=== PATIENT | female | born 1980 | race African-American/Black ===

== ENCOUNTER 2019-09-23 08:23 | Emergency (ER) | payer MEDICAID, SELFPAY ==
[2019-09-23 08:27] VITALS: BP 140/91; PULSE 105; RESP 17; TEMP 37.4; O2SAT 100; BMI 18.9
--- NOTE | 2019-09-23 08:46 | RAD_ITS ---
STUDY: X-RAY CHEST REASON FOR EXAM: Female, 38 years old. COUGH, CP, SOB , JOINT PAIN X 3 DAYS. HX SICKLE CELL TECHNIQUE: PA and lateral views of the chest. COMPARISON: None. FINDINGS: Right chest wall Mediport The lungs are clear and expanded. There is no demonstrated pleural abnormality. Normal size heart. Normal mediastinum and emigdio. Normal visualized pulmonary arteries. Normal visualized aortic arch and descending thoracic aorta. Normal visualized thoracic spine. Normal visualized ribs, clavicles, and shoulders. There is no demonstrated abnormality of the visualized soft tissue structures of the upper abdomen. RAD/Chest PA and Lateral IMPRESSION: Normal x-ray examination of the chest. Electronically Signed: Orlando Chambers DO at 11:51 EST Tel , Service support ,
--- NOTE | 2019-09-23 08:47 | EKG12_ITS ---
Test Reason : CP Blood Pressure : / mmHG Vent. Rate : 095 BPM Atrial Rate : 095 BPM P-R Int : 130 ms QRS Dur : 078 ms QT Int : 338 ms P-R-T Axes : 061 014 050 degrees QTc Int : 424 ms Normal sinus rhythm Normal ECG Confirmed by NAVIN NAVARRO, KIMBERLY ([id number]), metropolitan editor EASTON HYATT ([id number]) on 09/26/2019 8:25:45 AM Referred By: Esequiel López Confirmed By:KIMBERLY HOLDEN MD
--- NOTE | 2019-09-23 08:52 | ED.VIS.FLU ---
History of Present Illness Chief Complaint: Cough Informant: Patient Known exposure: No Onset: Days - 2-3 Context: Gradual Onset Timing: Continuous Quality: - - hard to breathe. 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 When asked if she has sickle cell trait versus disease, she states she does not just have treated his disease. She is usually seen in [facility] and she is here helping care for a friend when she developed these issues. She states she has pain everywhere. Her extremities including muscles and joints, abdomen, chest, throughout her back. She states she has fibromyalgia and sickle cell disease and type 1 diabetes. She states she has been very nauseated, has not been eating, she has been taking her long-acting insulin but avoiding the short acting. Her blood sugars have been running very high, sometimes her meter reads high and sometimes it is in the 500s. She denies any diarrhea. - Past Medical History (1) Sickle cell anemia Status: Chronic (2) Type 1 diabetes mellitus Status: Chronic (3) Fibromyalgia Status: Chronic (4) Rheumatoid arthritis Status: Chronic (5) Lupus Status: Chronic Past Medical History - Allergies and Home Meds Allergies/Adverse Reactions: Allergies ketorolac [From Toradol] Allergy (Verified 09/23/19 08:25) Hives metoclopramide [From Reglan] Allergy (Verified 09/23/19 08:25) Hives morphine Allergy (Verified 09/23/19 08:25) Hives prochlorperazine [From Compazine] Allergy (Verified 09/23/19 08:25) Hives Primary Care Physician: [facility] Doctor,Out of [NON-STAFF] - 1 Week if not improving Smoking Status: Unknown if ever smoked Drugs: None Review of Systems General: Reports: Chills, Fever, Malaise, Subjective. Denies: Sweats Cardiovascular: Reports: Chest pain. Denies: Palpitations Respiratory: Reports: Dyspnea, Cough. Denies: Orthopnea Gastrointestinal: Reports: Abdominal pain, Nausea, Vomiting. Denies: Diarrhea, Melena, Hematochezia Genitourinary: Denies: Dysuria, Hematuria, Frequency Musculoskeletal: Reports: Neck pain, Back pain, Extremity Pain. Denies: Swelling Skin: Denies: Rash, Wounds Neurological: Reports: Headache. Denies: Weakness, Numbness Physical Exam Vital Signs/Narrative: Vital Signs Temp Pulse Resp BP Pulse Ox 09/23/19 08:27 99.3 F H 105 H 17 140/91 H 100 Inital Vital Signs reviewed: Yes General: Well nourished, Well developed, - - Well-appearing, no acute distress. Head: Normocephalic, Atraumatic Eyes: Perrl, EOMI ENT: Moist mucous membranes, No rhinorrhea, TM's clear. Negative for: Sinus tenderness Neck: Supple, Nontender, No lymphadenopathy Cardiovascular: Regular rate, Regular rhythm, No murmurs Respiratory: No distress, CTA bilaterally, No Stridor, Chest nontender, - - Refuses to breathe deep during exam. Shallow breaths. Abdomen: Soft, Nondistended, Normal bowel sounds, Tender - Mild, diffuse. Negative for: Guarding, Rebound tenderness Back: Nontender, Normal Inspection Extremities: No edema, Tenderness - Diffuse, nonlocalized, normal inspection throughout Skin: Normal color, No rash, No Trauma Neurological: Alert, Oriented x3, Cranial nerves II-XII grossly intact, Normal Strength, Normal Sensation Psychological: Normal affect, Normal Mood Diagnostic/Tx/Re-eval Impressions Chest X-Ray 09/23/19 08:46 IMPRESSION: Normal x-ray examination of the chest. Electronically Signed: Orlando Chambers DO at 11:51 EST Tel , Service support , 09/23/19 08:46 Chest PA and Lateral [RAD] Stat 09/23/19 08:55 Mucosa - Nasopharyngeal Influenza Types A,B Direct FA (RAY) - Final Laboratory Results 09/23/19 09/23/19 09/23/19 10:07 10:07 10:07 WBC 14.2 H RBC 4.68 Hgb 11.4 L Hct 36.2 L MCV 77.4 L MCH 24.4 L MCHC 31.5 L RDW Std Deviation 36.2 RDW Coeff of Shireen 13.0 Plt Count 280 MPV 11.2 Immature Gran % (Auto) 0.400 Neut % (Auto) 76.8 H Lymph % (Auto) 17.8 L [place] % (Auto) 4.2 Eos % (Auto) 0.3 Baso % (Auto) 0.5 Absolute Neuts (auto) 10.9 H Absolute Lymphs (auto) 2.54 Nucleated RBC % 0 Retic Count 0.95 Immature Retic Fraction 6.90 Retic Hgb Equivalent 28.3 L Sodium 135 L Potassium 4.0 Chloride 107 Carbon Dioxide 20.0 L Anion Gap 8 BUN 17 Creatinine 0.92 Estim Creat Clear Calc 67.01 Est GFR (MDRD) Af Amer 87 Est GFR (MDRD) Non-Af 72 BUN/Creatinine Ratio 18.4 Glucose 407 H Calcium 9.0 Troponin I < 0.015 Urine Color Urine Clarity Urine pH Ur Specific Malone Urine Protein Urine Glucose (UA) Urine Ketones Urine Occult Blood Urine Nitrite Urine Bilirubin Urine Urobilinogen Ur Leukocyte Esterase Urine RBC Urine WBC Ur Squamous Epith Cells Urine Bacteria Urine Mucus Urine Yeast Acetone Level NEGATIVE 09/23/19 11:35 WBC RBC Hgb Hct MCV MCH MCHC RDW Std Deviation RDW Coeff of Shireen Plt Count MPV Immature Gran % (Auto) Neut % (Auto) Lymph % (Auto) [place] % (Auto) Eos % (Auto) Baso % (Auto) Absolute Neuts (auto) Absolute Lymphs (auto) Nucleated RBC % Retic Count Immature Retic Fraction Retic Hgb Equivalent Sodium Potassium Chloride Carbon Dioxide Anion Gap BUN Creatinine Estim Creat Clear Calc Est GFR (MDRD) Af Amer Est GFR (MDRD) Non-Af BUN/Creatinine Ratio Glucose Calcium Troponin I Urine Color Yellow Urine Clarity Clear Urine pH 6.5 Ur Specific Malone 1.015 Urine Protein 15 H Urine Glucose (UA) 1000 H Urine Ketones Negative Urine Occult Blood Negative Urine Nitrite Negative Urine Bilirubin Negative Urine Urobilinogen Normal Ur Leukocyte Esterase Negative Urine RBC 0 SEEN Urine WBC 0-5 SEEN Ur Squamous Epith Cells 0-5 SEEN Urine Bacteria 1+ Urine Mucus 0 SEEN Urine Yeast 1+ Acetone Level - Rhythm Strip Rhythm Strip: Sinus Rhythm Rate: 95 Ectopy: None - EKG Initial EKG Interpretation: Sinus Rhythm, No Acute Injury Pattern - normal ekg Prior: No Prior Re-Evaluation and Other Treatments: Patient sounds like she has a flulike syndrome. I offered her analgesics initially, thinking Toradol would be perfect for her symptoms, but she states she is allergic and gets chest tightness, hives, and more trouble breathing and she cannot have it. She states she is that way with morphine as well, and whenever she gets treated for pain she gets Dilaudid and she can take that just fine. I refuse to give her Dilaudid if she has that reaction with morphine. I did give her a dose of fentanyl for her symptoms. - Medical Decision Making Patient's work-up is all unremarkable. Notably, her reticulocyte count is within normal limits and not elevated. There were no sickle cells seen on her automated smear. Additionally, we looked up information from a different hospital, a [facility], she had tested negative for sickled cells there as well, her peripheral smear showed hypochromic small red blood cells, advise checking iron level. I suspect she has sickle cell trait and not sickle cell anemia. 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 I discussed all this with her. This would make more sense, as she likely is having myalgias along with her viral illness, given that her influenza test is negative and her chest x-ray is normal. This indicates she does not have pneumonia and does not have acute chest syndrome. Patient is adamant that she can safely have Dilaudid. I advised her that I am not giving her Dilaudid. I gave her 1 dose of fentanyl and she is asking for more narcotics for pain, which I am not giving her. She was offered Tylenol. She states she cannot take NSAIDs. I do not think she has any diagnosis here that requires narcotic pain medication. I think she has a viral syndrome, she is not hypoxic, she is clinically stable, and the rest of her tests are unremarkable and I think she is stable for discharge. No antibiotics indicated at this time. She was given several rounds of antiemetics because she said she was still nauseated but she was not actively vomiting. Initially she was given Zofran, Benadryl, Phenergan all at the same time because she said that she needed that, that is what she usually does for nausea. She was then given more Zofran later and said that she needed more Benadryl with that so she was given a smaller dose. She was also given insulin to help her sugar come down. Testing indicates she is not in DKA. Her EKG is normal I do not think she is having cardiac chest pain. It likely is soreness from all of the coughing. Same with her abdomen. I do not think she needs emergent imaging there. ED Disposition - Plan for ED Patient: Disposition: Home or Assisted Living Diagnosis: Viral syndrome, Diffuse pain, Hyperglycemia due to type 1 diabetes mellitus Instructions: BRONCHITIS, No Antibiotic (Adult), ED Diabetic Hyperglycemia Referrals: [facility] Doctor,Out of [NON-STAFF] - 1 Week if not improving
[2019-09-23 09:00] VITALS: PULSE 96; RESP 20
[2019-09-23] MEDS: Albuterol 2.5 MG/3 ML VIAL.NEB. INHALATION (09:09)
[2019-09-23] MEDS: 0.9% Normal Saline 1,000 ML 999 ML IV (09:31)
[2019-09-23] MEDS: Ondansetron 4 MG/2 ML Vial IV ×2 (09:31→12:01)
[2019-09-23] MEDS: fentaNYL 100 MCG/2 ML Ampul 50 MCG IV (09:31)
[2019-09-23] MEDS: proMETHazine 25 MG/ML Syringe 12.5 MG IV (09:31)
[2019-09-23] MEDS: DiphenhydrAMINE 50 MG/ML Syringe 25 MG IV (09:31)
[2019-09-23 10:19] LABS: Absolute Lymphocyte Count 2.54 X10^3/uL (0.83-4.51); Absolute Neutrophil Count 10.9 X10^3/uL (2.0-7.7); Basophil# 0.07 X10^3/uL; Basophil% 0.5 % (0-1); Eosinophil# 0.04 X10^3/uL; Eosinophils% 0.3 % (0-5); Hematocrit 36.2 % (37-47); Hemoglobin 11.4 g/dL (12.0-15.0); Lymphocyte # 2.54 X10^3/ul (4.0); Lymphocyte % 17.8 % (19-41); Mean Corp Hgb Conc 31.5 g/dL (32-36); Mean Corpuscular Hgb 24.4 pg (27.0-32.0); Mean Corpuscular Volume 77.4 fL (81-99); Mean Platelet Vol. 11.2 fl (6.2-12.0); Monocyte% 4.2 % (0-10); NRBC Flagged by Analyzer 0 % (0-5); Neutrophil # 10.94 X10^3/uL (2.7-7.7); Neutrophil % 76.8 % (47-70); Platelet Count 280 K/mm3 (150-450); RBC Distribution Width SD 36.2 fl (35.1-43.9); RET-HE 28.3 pg (30-35); Red Blood Count 4.68 M/mm3 (4.2-5.4); Reticulocyte Count 0.95 % (0.5-1.5); White Blood Count 14.2 K/mm3 (4.4-11.0)
[2019-09-23 10:28] VITALS: PULSE 103; RESP 15; O2SAT 99
[2019-09-23 10:35] LABS: Anion Gap 8 (5-15); BUN 17 mg/dL (7-18); BUN/Creat Ratio 18.4 RATIO (10-20); Chloride 107 mmol/L (98-107); Creatinine, Serum 0.92 mg/dL (0.55-1.02); EST Glomerular Filtration Rate 72 mL/min (>60); Est Glom Filt Rate - Afr Amer 87 mL/min (>60); Estimated Creatinine Clearance 67.01 ml/min; Glucose 407 mg/dL (74-106); Sodium Level 135 mmol/L (136-145)
[2019-09-23 11:42] LABS: Mucous, Urine 0 SEEN /hpf (<or=2+); Red Blood Cells-Urine 0 SEEN /hpf (0-5)
[2019-09-23 11:50] LABS: Color, Urine Yellow (Yellow); Glucose, Dipstick 1000 mg/dl (Normal); Ketone-Dipstick Negative (Negative); Leukocyte Esterase-Dipstick Negative /ul (Negative); Nitrite-Dipstick Negative (Negative); Occult Blood-Urine Negative /ul (Negative); Protein-Dipstick 15 mg/dl (Negative); Specific Gravity, Urine 1.015 (1.002-1.030); Urine Bilirubin Dipstick Negative (Negative); Urine Clarity Clear (Clear); Urine Urobilinogen Normal (Normal); Urine pH 6.5 (5.0 - 8.0)
[2019-09-23] MEDS: Insulin Lispro 100 UNIT/ML INSULN.PEN 8 UNIT SC (11:50)
[2019-09-23] MEDS: DiphenhydrAMINE 50 MG/ML Syringe 12.5 MG IV (12:00)
[2019-09-23 12:03] VITALS: RESP 18; O2SAT 99
[2019-09-23 12:03] LABS: Bacteria 1+ /hpf (None Seen); Squamous Epithelial Cells - UA 0-5 SEEN /hpf (5-10); White Blood Cells 0-5 SEEN /hpf (0-5); Yeast-Urine 1+ /hpf (None Seen)
[2019-09-23 13:25] VITALS: RESP 16
== END 2019-09-23 13:32 | disposition home or self-care (01) ==
PROVIDERS: Emergency Provider Emergency Medicine; PCP Physical Medicine & Rehabilitation; Referring Provider Physical Medicine & Rehabilitation
DX: B34.9 Viral infection, unspecified (principal); E10.65 Type 1 diabetes mellitus with hyperglycemia; M79.7 Fibromyalgia; M06.9 Rheumatoid arthritis, unspecified; Z79.4 Long term (current) use of insulin
CPT/HCPCS: 36415; 71046; 80048; 81001; 82009; 84484; 85025; 85045; 87804; 93005; 94640; 96361; 96374; 96375; 96376; 99285; J7030; A4216; J2405

== ENCOUNTER 2019-10-11 18:17 | Emergency (ER) | payer MEDICAID, SELFPAY ==
[2019-10-11 18:19] VITALS: BP 137/78; PULSE 111; RESP 18; TEMP 36.3; O2SAT 99; BMI 18.7
--- NOTE | 2019-10-11 18:38 | EKG12_ITS ---
Test Reason : CP Blood Pressure : / mmHG Vent. Rate : 107 BPM Atrial Rate : 107 BPM P-R Int : 128 ms QRS Dur : 076 ms QT Int : 334 ms P-R-T Axes : 058 024 054 degrees QTc Int : 445 ms Sinus tachycardia Otherwise normal ECG Confirmed by DONNA NAVARRO, ALICIA ([id number]), greeting card editor EASTON HYATT ([id number]) on 10/16/2019 2:33:14 PM Referred By: [facility] Confirmed By:LEO THOMPSON MD
--- NOTE | 2019-10-11 18:38 | RAD_ITS ---
STUDY: X-RAY CHEST REASON FOR EXAM: Female, 39 years old. SICKLE CELL CRISIS, JOINT PAIN, CHEST PAIN, N/V TECHNIQUE: AP COMPARISON: 09/23/2019 FINDINGS: Right chest port is stable. The lungs are clear and expanded. There is no demonstrated pleural abnormality. Normal size heart. Normal mediastinum and emigdio. Normal visualized pulmonary arteries. Normal visualized aortic arch and descending thoracic aorta. Normal visualized thoracic spine. Normal visualized ribs, clavicles, and shoulders. There is no demonstrated abnormality of the visualized soft tissue structures of the upper abdomen. RAD/Chest 1 View (Portable) IMPRESSION: Stable, nonacute portable x-ray examination of the chest. Electronically Signed: Jama Renner MD (Brooks) at 19:31 EST , Service support ,
[2019-10-11 19:24] VITALS: BP 106/70; PULSE 109; RESP 19; O2SAT 99
[2019-10-11 19:24] LABS: Absolute Lymphocyte Count 2.38 X10^3/uL (0.83-4.51); Basophil# 0.06 X10^3/uL; Basophil% 0.6 % (0-1); Eosinophil# 0.04 X10^3/uL; Eosinophils% 0.4 % (0-5); Hematocrit 35.9 % (37-47); Hemoglobin 11.2 g/dL (12.0-15.0); Lymphocyte # 2.38 X10^3/ul (4.0); Lymphocyte % 25.6 % (19-41); Mean Corp Hgb Conc 31.2 g/dL (32-36); Mean Corpuscular Volume 76.9 fL (81-99); Mean Platelet Vol. 11.7 fl (6.2-12.0); Monocyte# 0.83 X10^3/uL; Monocyte% 8.9 % (0-10); NRBC Flagged by Analyzer 0 % (0-5); Neutrophil # 5.97 X10^3/uL (2.7-7.7); Neutrophil % 64.2 % (47-70); Platelet Count 278 K/mm3 (150-450); RBC Distribution Width CV 12.7 % (11.6-14.6); RBC Distribution Width SD 35.2 fl (35.1-43.9); Red Blood Count 4.67 M/mm3 (4.2-5.4); White Blood Count 9.3 K/mm3 (4.4-11.0)
[2019-10-11 19:51] LABS: Anion Gap 10 (5-15); BUN 16 mg/dL (7-18); BUN/Creat Ratio 14.3 RATIO (10-20); Chloride 98 mmol/L (98-107); Creatinine, Serum 1.12 mg/dL (0.55-1.02); EST Glomerular Filtration Rate 57 mL/min (>60); Est Glom Filt Rate - Afr Amer 69 mL/min (>60); Estimated Creatinine Clearance 53.76 ml/min; Glucose 452 mg/dL (74-106); Potassium 3.9 mmol/L (3.5-5.1); Sodium Level 132 mmol/L (136-145)
--- NOTE | 2019-10-11 19:58 | ED.DCSUM_ITS ---
- ER Visit Summary Date of Service: 10/11/19 Chief Complaint: Diffuse body pain I think I am having a sickle cell crisis History of Present Illness: The patient is a 39 F history of sickle cell anemia, insulin-dependent diabetes, lupus, rheumatoid arthritis and pancreatitis. Patient has a MediPort. States that for the last 3 days she has felt diffuse body aches and has been elevated blood sugar. Has had nausea and vomiting. No diarrhea. No fever. No melena. No dysuria. States is a diffuse aching chest pain also. No history of cardiac disease. No history of DVT or PE. Physical Examination: Middle-aged female no acute distress vital signs stable afebrile. Pulse ox 9 9% room air no signs hypoxia. HEENT exam unremarkable. Neck nontender no lymphadenopathy. Lungs clear to auscultation bilaterally. Heart regular rhythm rate about 110 no murmur. Abdomen soft nontender normal bowel sounds no peritoneal signs. Patient is moving all 4 extremities. 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 Dorsi plantarflexion intact. Calves are nontender without edema or cords. Neurologically she is awake and alert with no focal motor deficits. Back nontender. Skin unremarkable. Neurologic exam normal. Test Results: Essentially portable 1 view read by myself the radiologist showed no acute abnormality. Right-sided Medpor. EKG sinus tachycardia rate of 107 no acute signs of [place] or ischemia and unchanged from her prior about 3 weeks ago. CBC showed a chronic anemia hemoglobin 11 which is her baseline. Normal white count. Electrolytes unremarkable normal creatinine and gap. Blood sugar 452. Lipase 173. Opponent normal. Blood sugar of 452 serum ketones was obtained which was negative. Due to her history of sickle cell disease and a pain crisis a reticulocyte count was obtained that was normal at 0.87. Emergency Department Course and Treatment: Patient with possible sickle cell crisis. Treated with IV fluids, Toradol, Dilaudid and Zofran. She will undergo lab evaluation. Ultimately repeat exams unchanged. There is a concern this patient is displaying drug-seeking behavior not only did she want certain meds and asked for specific dosages but she also wanted injected in the IV site closest to her skin. She was also given subcu insulin 16 units for her hyperglycemia. She was given additional nausea medication. She asked for additional Dilaudid and after reviewing her labs I explained to her that we could not give her any further pain medication. Treatment Plan: Her primary care physician. Watch her blood sugars closely. Disposition: discharge Impression: Acute pain uncertain etiology Hyperglycemia with a history of diabetes History of sickle cell disease and lupus This note was generated with [employer]FX[employer] dictation software. It may contain incorrect words, spelling, and punctuation that were not noted in review of the chart prior to signing ED Disposition - Plan for ED Patient: Referrals: Esequiel López [Primary Care Provider] -
[2019-10-11] MEDS: Ondansetron 4 MG/2 ML Vial IV (20:15)
[2019-10-11] MEDS: proMETHazine 25 MG/ML Syringe 12.5 MG IV ×2 (20:17→22:10)
[2019-10-11 20:18] LABS: Lipase 173 U/L (73-393)
[2019-10-11] MEDS: DiphenhydrAMINE 50 MG/ML Syringe 25 MG IV ×2 (20:19→22:07)
[2019-10-11] MEDS: HYDROmorphone 1 MG/ML Syringe IV (20:22)
[2019-10-11] MEDS: 0.9% Normal Saline 1,000 ML 999 ML IV (20:22)
[2019-10-11 20:24] VITALS: BP 122/87; PULSE 121; RESP 16; O2SAT 99
[2019-10-11 20:27] LABS: Platelet Count 288 K/mm3 (150-450); RET-HE 28.8 pg (30-35); Reticulocyte Count 0.87 % (0.5-1.5)
[2019-10-11 21:09] VITALS: BP 174/114; PULSE 115; RESP 20; O2SAT 98
--- NOTE | 2019-10-11 21:17 | ED.RN ---
PT RESTING QUIETLY IN BED TEXTING ON PHONE, NO SIGNS OF DISTRESS. PT REQUESTS MORE DILAUDID, BENADRYL, ZOFRAN AND PHENERGAN. STATES WE ONLY GAVE HER HALF THE USUAL AMOUNT OF EACH DOSE SHE TAKES. AWARE.
[2019-10-11 22:00] VITALS: BP 127/89; PULSE 103; RESP 18; O2SAT 98
--- NOTE | 2019-10-11 22:03 | ED.DEP ---
ED Disposition - Plan for ED Patient: Disposition: Home or Assisted Living Instructions: CHEST PAIN, Uncertain Cause Referrals: Esequiel López [Primary Care Provider] - As soon as possible Additional Instructions: Your blood sugars closely. Take your blood sugar prior to going to bed the night. Follow-up with your doctor.
[2019-10-11] MEDS: Insulin Lispro 100 UNIT/ML INSULN.PEN 16 UNIT SC (22:12)
--- NOTE | 2019-10-11 22:23 | ED.RN ---
PT REQUESTS 25MG MORE OF BENADRYL WITH HER SECOND DOSE OF PHENERGAN DUE TO EXTREME NAUSEA. MD NOTIFIED AND MORE SECOND DOSE BENADRYL ORDERED TOO. PT REQUESTS ALL MEDS BE PUSHED AT LOWEST IV PORT CLOSEST TO PT. EDUCATED PT ON IMPORTANCE OF DILUTING MEDICATIONS AND ADMINISTERING AT FURTHEST PORT. PT THEN REQUESTS MEAL, STATES EVEN THOUGH SHE LIVES JUST DOWN THE STREET SHE WOULD PREFER TO EAT HERE, STATES LAST VISIT SHE RECEIVED MEAL AT DISCHARGE. PT GIVEN TERESA CRACKERS, PEANUT BUTTER, STRING CHEESE AND APPLE JUICE.
--- NOTE | 2019-10-11 22:29 | ED.RN ---
PORT FLUSHED WITH SALINE AND THEN HEPARIN, SITE INTACT, BANDAID PLACED.
== END 2019-10-11 22:30 | disposition home or self-care (01) ==
PROVIDERS: Emergency Provider Emergency Medicine; PCP Physical Medicine & Rehabilitation
DX: R07.9 Chest pain, unspecified (principal); E11.65 Type 2 diabetes mellitus with hyperglycemia; M32.9 Systemic lupus erythematosus, unspecified; Z79.4 Long term (current) use of insulin; Z79.82 Long term (current) use of aspirin; Z79.899 Other long term (current) drug therapy; D57.1 Sickle-cell disease without crisis
CPT/HCPCS: 36591; 71045; 80048; 82009; 83690; 84484; 85025; 85045; 93005; 96361; 96374; 96375; 96376; 99285; J7030; A4216; J2405

== ENCOUNTER 2019-11-09 19:02 | Emergency (ER) | payer MEDICAID, SELFPAY ==
[2019-11-09 19:03] VITALS: BP 134/85; PULSE 103; RESP 17; TEMP 37.4; O2SAT 99; BMI 18.7
--- NOTE | 2019-11-09 19:30 | EKG12_ITS ---
Test Reason : CP Blood Pressure : / mmHG Vent. Rate : 101 BPM Atrial Rate : 101 BPM P-R Int : 124 ms QRS Dur : 076 ms QT Int : 340 ms P-R-T Axes : 089 044 082 degrees QTc Int : 440 ms Sinus tachycardia Otherwise normal ECG Confirmed by CORNELIO BARCLAY ([id number]), video effects editor ALONZO JC ([id number]) on 11/13/2019 10:58:37 AM Referred By: Confirmed By:CORNELIO BARCLAY
--- NOTE | 2019-11-09 19:40 | RAD_ITS ---
STUDY: X-RAY CHEST REASON FOR EXAM: Female, 39 years old. CHEST PAIN SINCE THIS AM RADIATING TO BACK, HX SICKLE CELL TECHNIQUE: Frontal view COMPARISON: October 11, 2019 FINDINGS: Right venous port with tip at the proximal SVC level. The lungs are clear and expanded. There is no demonstrated pleural abnormality. Normal size heart. Normal mediastinum and emigdio. Normal visualized pulmonary arteries. Normal visualized aortic arch and descending thoracic aorta. Normal visualized thoracic spine. Normal visualized ribs, clavicles, and shoulders. There is no demonstrated abnormality of the visualized soft tissue structures of the upper abdomen. RAD/Chest 1 View (Portable) IMPRESSION: Normal x-ray examination of the chest. Electronically Signed: Doyle Gimenez DO at 19:52 EDT Tel [phone], Service support ,
[2019-11-09] MEDS: DiphenhydrAMINE 50 MG/ML Syringe 25 MG IV ×2 (19:49→21:07)
[2019-11-09] MEDS: Ondansetron 4 MG/2 ML Vial IV ×2 (19:49→21:07)
[2019-11-09] MEDS: proMETHazine 25 MG/ML Syringe 12.5 MG IV (19:49)
[2019-11-09] MEDS: HYDROmorphone 1 MG/ML Syringe IV (19:50)
[2019-11-09 19:57] VITALS: BP 137/88; PULSE 108; RESP 19; TEMP 36.4; O2SAT 98
[2019-11-09 20:20] VITALS: BP 126/83; PULSE 107; RESP 16; TEMP 36.8; O2SAT 98
[2019-11-09 20:21] LABS: Absolute Lymphocyte Count 2.66 X10^3/uL (0.83-4.51); Basophil# 0.06 X10^3/uL; Basophil% 0.6 % (0-1); Eosinophil# 0.05 X10^3/uL; Eosinophils% 0.5 % (0-5); Hematocrit 32.2 % (37-47); Lymphocyte # 2.66 X10^3/ul (4.0); Lymphocyte % 28.2 % (19-41); Mean Corp Hgb Conc 31.1 g/dL (32-36); Mean Corpuscular Hgb 23.6 pg (27.0-32.0); Mean Corpuscular Volume 75.9 fL (81-99); Mean Platelet Vol. 11.6 fl (6.2-12.0); Monocyte# 0.66 X10^3/uL; NRBC Flagged by Analyzer 0 % (0-5); Neutrophil # 5.97 X10^3/uL (2.7-7.7); Neutrophil % 63.4 % (47-70); Platelet Count 340 K/mm3 (150-450); RBC Distribution Width CV 13.4 % (11.6-14.6); RBC Distribution Width SD 36.5 fl (35.1-43.9); RET-HE 25.4 pg (30-35); Red Blood Count 4.24 M/mm3 (4.2-5.4); Reticulocyte Count 1.05 % (0.5-1.5); White Blood Count 9.4 K/mm3 (4.4-11.0)
[2019-11-09 20:33] LABS: ALB/GLOB Ratio 0.6 RATIO (0.9-2.4); AST(SGOT) 12 U/L (15-37); Alanine Aminotransfer ALT/SGPT 18 U/L (13-56); Albumin, Serum 2.6 g/dL (3.2-5.0); Alkaline Phosphatase 163 U/L (45-117); Anion Gap 8 (5-15); BUN 15 mg/dL (7-18); BUN/Creat Ratio 13.8 RATIO (10-20); Calcium,Total 8.7 mg/dL (8.5-10.1); Chloride 104 mmol/L (98-107); Creatinine, Serum 1.09 mg/dL (0.55-1.02); EST Glomerular Filtration Rate 59 mL/min (>60); Est Glom Filt Rate - Afr Amer 72 mL/min (>60); Estimated Creatinine Clearance 55.35 ml/min; Globulin 4.7 g/dL (2.2-4.2); Glucose 472 mg/dL (74-106); Lipase 154 U/L (73-393); Potassium 3.7 mmol/L (3.5-5.1); Protein, Total 7.3 g/dL (6.4-8.2); Sodium Level 134 mmol/L (136-145)
[2019-11-09] MEDS: Insulin Lispro 100 UNIT/ML INSULN.PEN 10 UNIT SC (21:08)
[2019-11-09] MEDS: proMETHazine 25 MG/ML Syringe 6.25 MG IV (21:08)
[2019-11-09] MEDS: 0.9% Normal Saline 1,000 ML 999 ML IV (21:08)
[2019-11-09] MEDS: HYDROmorphone 0.5 MG/0.5 ML SYRINGE IV (21:09)
[2019-11-09 21:24] VITALS: BP 137/93; PULSE 119; RESP 18; O2SAT 97
[2019-11-09 22:01] LABS: Bedside Glucose 306 mg/dL (70-110)
--- NOTE | 2019-11-09 22:11 | ED.DCSUM_ITS ---
- ER Visit Summary Date of Service: 11/09/19 Chief Complaint: Chest pain History of Present Illness: The patient is a 39 F with a history of sickle cell disease. She presents with chest pain and myalgias. She also has back pain. She has a history of lupus, rheumatoid arthritis, fibromyalgia, in addition to her sickle cell. Physical Examination: Afebrile and vital signs unremarkable except for heart rate of 103. She appears nontoxic and in no acute distress. Heart regular. Lungs clear. Abdomen soft. Skin appears normal. Test Results: EKG shows sinus rhythm at a rate of 101. Hemoglobin stable at 10.0. Glucose 472, creatinine 1.09. Reticulocytes 25.4, stable. Alkaline phosphatase 163, lipase normal. Troponin normal. Chest x-ray normal. Emergency Department Course and Treatment: Patient received pain meds, Benadryl, Zofran, Phenergan. She also received IV fluids and insulin for her glucose of 472. Repeat glucose was about 300. There is no indication for hospitalization, transfusion, or further cardiac work-up. She will receive the rest of her fluids and be discharged home. Follow-up with her primary doctor. Treatment Plan: As above Disposition: Discharge Impression: Sickle cell disease, chest pain, hyperglycemia This note was generated with [email or web address] dictation software. It may contain incorrect words, spelling, and punctuation that were not noted in review of the chart prior to signing ED Disposition - Plan for ED Patient: Referrals: Esequiel López [Primary Care Provider] -
[2019-11-09 22:14] VITALS: BP 132/85; PULSE 117; RESP 19; O2SAT 99
--- NOTE | 2019-11-09 22:14 | ED.DEP ---
ED Disposition - Plan for ED Patient: Instructions: Sickle Cell Anemia Referrals: Esequiel López [Primary Care Provider] -
[2019-11-09] MEDS: 0.9% Normal Saline 1,000 ML 1000 ML IV (22:23)
[2019-11-09 23:32] VITALS: BP 116/73; PULSE 100; RESP 16; O2SAT 98
== END 2019-11-09 23:34 | disposition home or self-care (01) ==
LOC: ED 19:24
PROVIDERS: Emergency Provider Emergency Medicine; PCP Physical Medicine & Rehabilitation
DX: D57.1 Sickle-cell disease without crisis (principal); R07.9 Chest pain, unspecified; R73.9 Hyperglycemia, unspecified
CPT/HCPCS: 36415; 71045; 80053; 82962; 83690; 84484; 85025; 85045; 93005; 96361; 96374; 96375; 96376; 99283; J7030; A4216; J2405

== ENCOUNTER 2019-11-18 11:45 | Emergency (ER) | payer MEDICAID, SELFPAY ==
[2019-11-18 11:46] VITALS: BP 113/75; PULSE 115; RESP 16; TEMP 37.6; O2SAT 100; BMI 19.4
--- NOTE | 2019-11-18 12:20 | EKG12_ITS ---
Test Reason : Blood Pressure : / mmHG Vent. Rate : 110 BPM Atrial Rate : 110 BPM P-R Int : 124 ms QRS Dur : 070 ms QT Int : 330 ms P-R-T Axes : 067 010 052 degrees QTc Int : 446 ms Sinus tachycardia Otherwise normal ECG Confirmed by NAVIN NAVARRO, KIMBERLY ([id number]), newspaper or periodical editor EASTON HYATT ([id number]) on 11/21/2019 9:19:50 AM Referred By: DAYRON Confirmed By:KIMBERLY HOLDEN MD
[2019-11-18 12:30] VITALS: RESP 16
--- NOTE | 2019-11-18 12:45 | ED.DCSUM_ITS ---
- ER Visit Summary Date of Service: 11/18/19 Chief Complaint: Chest pain, shortness of breath History of Present Illness: The patient is a 39 F who presents with chest pain and shortness of breath that is been getting worse over the past couple days. Patient states the pain in her chest is sharp and radiates into her back. Patient states she feels short of breath at times. Patient denies any cough. Patient denies any fevers or chills. Patient admits to some nausea and vomiting. Patient admits to some diffuse abdominal pain. Patient states she has a history of sickle cell disease and pancreatitis as well as diabetes, fibromyalgia, rheumatoid arthritis, and lupus. Physical Examination: Vital signs are stable except for mild tachycardia of 115. Patient is afebrile. Patient is in no acute distress. Oral mucosa is pink and moist. Neck is supple. Trachea is midline. There is no JVD. Heart was regular rate and rhythm. Lungs are clear and equal bilaterally. Abdomen is soft. Bowel sounds are normal. There is mild diffuse tenderness. There is no rebound or guarding noted. Cranial nerves II through XII are intact. There are no focal motor or sensory deficits noted. Extremities are intact. There is no calf tenderness or edema. Test Results: EKG showed sinus tachycardia with a rate of 110. There are no acute ST or T wave changes. CBC, comprehensive metabolic profile, lipase, troponin, and reticulocyte count were ordered. Portable chest x-ray was also ordered. Patient became upset and wanted to leave prior to having these labs and x-rays done. Emergency Department Course and Treatment: Patient was ordered IV fluids, Zofran, Benadryl, and oral oxycodone. Patient became upset here in the emergency department. Patient states she heard other people talking about her and this made her feel like she was wanted here in the emergency department. Patient states she just wants to leave. Patient does not want any further testing or treatment at this time. Patient will be discharged to follow-up with her primary care physician. Patient understood and was agreeable with the plan. All questions were answered. Disposition: Discharge Impression: Chest pain of uncertain etiology This note was generated with Goodpatchation software. It may contain incorrect words, spelling, and punctuation that were not noted in review of the chart prior to signing ED Disposition - Plan for ED Patient: Disposition: Home or Assisted Living Diagnosis: Chest pain of uncertain etiology, Sickle cell anemia Instructions: ED Sickle Cell Pain Crisis Referrals: Esequiel López [Primary Care Provider] - 3-5 Days
== END 2019-11-18 12:57 | disposition home or self-care (01) ==
LOC: ED 12:55
PROVIDERS: Emergency Provider Emergency Medicine; PCP Physical Medicine & Rehabilitation
DX: R07.9 Chest pain, unspecified (principal); E11.9 Type 2 diabetes mellitus without complications; M32.9 Systemic lupus erythematosus, unspecified; M06.9 Rheumatoid arthritis, unspecified; D57.1 Sickle-cell disease without crisis; Z79.82 Long term (current) use of aspirin; Z79.4 Long term (current) use of insulin
CPT/HCPCS: 93005; 99283; J2405

== ENCOUNTER 2019-12-05 00:26 | Emergency (ER) | payer MEDICAID, SELFPAY ==
[2019-12-05 00:27] VITALS: PULSE 117
[2019-12-05 00:28] VITALS: BP 143/89; PULSE 123; RESP 16; TEMP 37; O2SAT 98; BMI 20.5
--- NOTE | 2019-12-05 00:47 | CT_ITS ---
STUDY: CT ABDOMEN AND PELVIS WITHOUT CONTRAST REASON FOR EXAM: Female, 39 years old. R SIDE ABD PAIN, N/V/D, MALAISE X 4 DAYS RADIATION DOSAGE (If Supplied By Facility): CTDIvol = ( 7.54 ) mGy, DLP = ( 268.08 ) mGycm TECHNIQUE: Transaxial images were obtained from the dome of the diaphragm to the symphysis pubis without oral contrast, and without intravenous contrast. Sagittal and coronal images were reconstructed. Individualized dose optimization techniques were used for this CT. COMPARISON: None. FINDINGS: Right lower lobe atelectasis. Remainder of the lung bases are clear. No pleural effusion. The visualized portions of the heart are within normal limits. Normal liver. The gallbladder is contracted. Within the upper aspect of the spleen there is a round low-attenuation structure measuring 4.5 x 4.5 cm in axial dimension by 3.3 cm in craniocaudal dimension. Normal pancreas. Normal bilateral adrenal glands. Normal right kidney. Normal left kidney. Normal visualized stomach. Normal small intestine. Increased fecal debris within the colon suggestive of constipation. Diverticulosis with no signs of diverticulitis. The appendix is visualized and appears normal. Normal abdominal aorta. Normal inferior vena cava. Normal retroperitoneum. Normal urinary bladder. Anteverted uterus. Right-sided adnexal cyst measuring 2.6 x 2.0 cm. No free fluid in the pelvis. Heterogeneous appearance of the uterus at the level of the fundus which may indicate uterine fibroids. Normal abdominal wall. Normal osseous structures. CT/Abdomen/Pelvis W IV Cont ONLY IMPRESSION: Low-attenuation structure within the spleen described above, follow-up with ultrasound is recommended to evaluate if this represents a cyst versus solid lesion. Contracted gallbladder, remainder of abdominal viscera are unremarkable. No acute appendicitis. Constipation. No focal inflammatory process throughout the gastrointestinal tract. Right-sided adnexal cyst as described. No free fluid in the pelvis. Heterogeneous uterus suggestive of uterine fibroids at the level of the fundus. If indicated, these findings can be further assessed with ultrasound of the pelvis. Electronically Signed: Alfreda Walsh MD at 2:21 EDT , Service support ,
--- NOTE | 2019-12-05 00:49 | ED.DCSUM_ITS ---
History of Present Illness Chief Complaint: General Illness Detail of Chief Complaint: n/v/d, abd pain, chest pain Informant: Patient - Abdominal Pain/Flank Pain Onset: Days - 4 Context: Gradual Onset Timing: Continuous Quality: Aching Location: RUQ, RLQ Current Severity: Severe Maximum Severity: Severe Worsened by: - - vomiting Relieved by: Nothing - Nausea/Vomiting/Emesis GI Symptom: Nausea, Vomiting Onset: Days - 4 Quality: Negative for: Blood streaks, Coffee ground, Hematemesis - Diarrhea/Melena/Hematochezia GI Symptom: Diarrhea. Negative for: Melena, Hematochezia Onset: Days - 4 Stool Quality: Watery. Negative for: Black, Maroon, ISIDRO per rectum Severity: Moderate Episodes: 4 - per day, approx Associated Symptoms: - - decreased UOP. Negative for: Dysuria, Frequency, Hematuria, Urgency Narrative: Patient presenting with 4 days of vomiting diarrhea abdominal pain all on the right side, today she started having chest discomfort that feels sharp, dull, like pressure all at the same time with radiation into her mid upper back. She has had this and presented here with this before. Usually she describes the abdominal pain is diffuse. She has never had any abdominal surgeries. She claims low-grade fevers 99-100. Denies any dyspnea but she has had a minor nonproductive cough. She feels dehydrated. She states her blood sugars have been reading high and she is a type I diabetic and has been taking her long- acting insulin. She denies any syncope or palpitations, arm discomfort, rashes, or other upper respiratory symptoms. She states she has a history of sickle cell anemia, but as I have documented before after seeing this patient, she has never had a peripheral smear that I have seen in this healthcare system EMR or [facility]'s that shows any sickled cells, she has been here 3 prior times for sickle cell pain and has had normal retic counts (not elevated) all 3 times, and has had low or normal bilirubin levels. Furthermore, she has told me that she has alpha thalassemia or sickle cell trait, she really was not sure. 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 - Past Medical History (1) Anemia Status: Chronic (2) Fibromyalgia Status: Chronic (3) Lupus Status: Chronic (4) Rheumatoid arthritis Status: Chronic (5) Type 1 diabetes mellitus Status: Chronic Past Medical History - Allergies and Home Meds Allergies/Adverse Reactions: Allergies ketorolac [From Toradol] Allergy (Verified 12/05/19 00:27) Hives metoclopramide [From Reglan] Allergy (Verified 12/05/19 00:27) Hives morphine Allergy (Verified 12/05/19 00:27) Hives prochlorperazine [From Compazine] Allergy (Verified 12/05/19 00:27) Hives Primary Care Physician: Esequiel Lópze [Primary Care Provider] - Surgical History: - - [facility], lung surgery for nodules Smoking Status: Never smoker Alcohol: None Review of Systems General: Reports: Fever, Malaise, Subjective. Denies: Chills, Sweats Eyes: Denies: Visual changes - bilaterally, Diplopia ENT: Denies: Bilateral ear pain, Rhinorrhea, Sore throat Cardiovascular: Reports: Chest pain. Denies: Palpitations Respiratory: Reports: Cough. Denies: Dyspnea, Sputum, Dyspnea on exertion Gastrointestinal: Reports: Abdominal pain, Nausea, Vomiting, Diarrhea. Denies: Melena, Hematochezia Genitourinary: Denies: Dysuria, Hematuria, Frequency Musculoskeletal: Reports: Arthralgias - chronic, mostly in both hands, Back pain. Denies: Neck pain, Swelling, Extremity Pain Skin: Denies: Rash, Abscess, Wounds Neurological: Denies: Headache, Weakness, Numbness Physical Exam Vital Signs/Narrative: Vital Signs Temp Pulse Resp BP Pulse Ox 12/05/19 00:28 98.6 F 123 H 16 143/89 H 98 12/05/19 00:27 117 H Inital Vital Signs reviewed: Yes General: Well nourished, Well developed, No Acute Distress Head: Normocephalic, Atraumatic Eyes: Perrl, EOMI ENT: Moist mucous membranes, No rhinorrhea Neck: Supple, Nontender, No lymphadenopathy Cardiovascular: Regular rate, Regular rhythm, No murmurs, Tachycardia Respiratory: No distress, CTA bilaterally, Chest nontender Abdomen: Soft, Nondistended, Normal bowel sounds, Tender - throughout right side, Guarding - vol. Negative for: Rebound tenderness Back: Nontender, Normal Inspection. Negative for: CVA tenderness Extremities: Nontender, No edema Skin: Normal color, No rash, No Trauma Neurological: Alert, Oriented x3, Cranial nerves II-XII grossly intact, Normal Strength, Normal Sensation, Normal Gait Psychological: Normal affect, Normal Mood Diagnostic/Tx/Re-eval Impressions Abdomen/Pelvis CT 12/05/19 00:47 IMPRESSION: Low-attenuation structure within the spleen described above, follow-up with ultrasound is recommended to evaluate if this represents a cyst versus solid lesion. Contracted gallbladder, remainder of abdominal viscera are unremarkable. No acute appendicitis. Constipation. No focal inflammatory process throughout the gastrointestinal tract. Right-sided adnexal cyst as described. No free fluid in the pelvis. Heterogeneous uterus suggestive of uterine fibroids at the level of the fundus. If indicated, these findings can be further assessed with ultrasound of the pelvis. Electronically Signed: Alfreda Walsh MD at 2:21 EDT , Service support , 12/05/19 00:47 Abdomen/Pelvis W IV Cont ONLY [CT] Stat Laboratory Results 12/05/19 12/05/19 12/05/19 01:04 01:04 01:04 WBC 10.7 RBC 3.77 L Hgb 8.7 L Hct 28.4 L MCV 75.3 L MCH 23.1 L MCHC 30.6 L RDW Std Deviation 37.3 RDW Coeff of Shireen 13.9 Plt Count 326 MPV 11.0 Immature Gran % (Auto) 0.400 Neut % (Auto) 68.8 Lymph % (Auto) 22.4 [place] % (Auto) 7.5 Eos % (Auto) 0.4 Baso % (Auto) 0.5 Absolute Neuts (auto) 7.4 Absolute Lymphs (auto) 2.39 Nucleated RBC % 0 Specimen Type Sample Site VBG pH VBG pO2 VBG O2 Sat (Calc) VBG O2 Content VBG Base Excess POC Mix VBG pCO2 Pt Tmp O2 Delivery Device Blood Gas Notified Whom Blood Gas Notified Time Sodium 136 Potassium 3.5 Chloride 105 Carbon Dioxide 23.0 Anion Gap 8 BUN 15 Creatinine 0.86 Estim Creat Clear Calc 76.60 Est GFR (MDRD) Af Amer 94 Est GFR (MDRD) Non-Af 77 BUN/Creatinine Ratio 17.4 Glucose 364 H Calcium 8.7 Total Bilirubin 0.10 L AST 10 L ALT 11 L Alkaline Phosphatase 159 H Total Protein 7.1 Albumin 2.7 L Globulin 4.4 H Albumin/Globulin Ratio 0.6 L Lipase 160 Serum , Qual Acetone Level NEGATIVE 12/05/19 12/05/19 01:04 01:04 WBC RBC Hgb Hct MCV MCH MCHC RDW Std Deviation RDW Coeff of Shireen Plt Count MPV Immature Gran % (Auto) Neut % (Auto) Lymph % (Auto) [place] % (Auto) Eos % (Auto) Baso % (Auto) Absolute Neuts (auto) Absolute Lymphs (auto) Nucleated RBC % Specimen Type JATINDER Sample Site OTHER VBG pH 7.45 H VBG pO2 39 VBG O2 Sat (Calc) 77 H VBG O2 Content Not Reportable VBG Base Excess -2 L POC Mix VBG pCO2 Pt Tmp 31.7 L O2 Delivery Device Room Air Blood Gas Notified Whom ED MD Blood Gas Notified Time 107 Sodium Potassium Chloride Carbon Dioxide Anion Gap BUN Creatinine Estim Creat Clear Calc Est GFR (MDRD) Af Amer Est GFR (MDRD) Non-Af BUN/Creatinine Ratio Glucose Calcium Total Bilirubin AST ALT Alkaline Phosphatase Total Protein Albumin Globulin Albumin/Globulin Ratio Lipase Serum , Qual NEGATIVE Acetone Level - Medical Decision Making I am aware of this patient saying that she is allergic to all NSAIDs and requesting narcotics from multiple hospitals in the region, some very far apart from one another, and as I discussed with her [id number] before, I advised her that we would not be treating her with narcotics tonight unless she has a verifiable acute diagnosis that is painful. She understands. I advised her I am happy to hydrate her, try to get her feeling better and to the point where she is tolerating fluids, and to rule out emergent medical diagnoses with medical screening examination. In doing this, labs are obtained including acetone/ketone level which was negative, and a venous pH which was normal, along with a normal anion gap rules out DKA. Her blood sugar was 364, she was given fluids and short acting insulin for that. Also according to her request, Phenergan 25 mg, Benadryl 50 mg, and Zofran 8 mg all IV and simultaneously. I gave her a GI cocktail for the chest discomfort which I suspect is GI in origin, she has had this discomfort multiple times here and had normal cardiac work-up which I do not think needs to be repeated, and given her localized abdominal pain to the right side, IM Bentyl was given and a CT abdomen/pelvis with IV contrast was performed, which was unremarkable for anything acute, showing mostly constipation on the right side of the abdomen, which may be causing her discomfort. There is no sign of a bowel obstruction or appendicitis. She was feeling much better with the above treatment. Her blood sugar came down she was able to tolerate oral fluids and was asking for discharge papers. Viral etiology is possible, she frequently has these GI symptoms and other functional intestinal diseases are also in the differential diagnosis, which is why she should follow-up with primary care. ED Disposition - Plan for ED Patient: Disposition: Home or Assisted Living Diagnosis: Nausea vomiting and diarrhea, Mild dehydration, Hyperglycemia due to type 1 diabetes mellitus, Right sided abdominal pain Instructions: ED Vomiting and Diarrhea Nonspecific Adult, ED Constipation Referrals: Esequiel López [Primary Care Provider] - 3-5 Days if not improving
[2019-12-05] MEDS: 0.9% Normal Saline 1,000 ML 1000 ML IV (01:09)
[2019-12-05 01:10] LABS: Absolute Lymphocyte Count 2.39 X10^3/uL (0.83-4.51); Absolute Neutrophil Count 7.4 X10^3/uL (2.0-7.7); Basophil# 0.05 X10^3/uL; Basophil% 0.5 % (0-1); Eosinophil# 0.04 X10^3/uL; Eosinophils% 0.4 % (0-5); Hematocrit 28.4 % (37-47); Hemoglobin 8.7 g/dL (12.0-15.0); Lymphocyte # 2.39 X10^3/ul (4.0); Lymphocyte % 22.4 % (19-41); Mean Corp Hgb Conc 30.6 g/dL (32-36); Mean Corpuscular Hgb 23.1 pg (27.0-32.0); Mean Corpuscular Volume 75.3 fL (81-99); Monocyte% 7.5 % (0-10); NRBC Flagged by Analyzer 0 % (0-5); Neutrophil # 7.37 X10^3/uL (2.7-7.7); Neutrophil % 68.8 % (47-70); Platelet Count 326 K/mm3 (150-450); RBC Distribution Width CV 13.9 % (11.6-14.6); RBC Distribution Width SD 37.3 fl (35.1-43.9); Red Blood Count 3.77 M/mm3 (4.2-5.4); White Blood Count 10.7 K/mm3 (4.4-11.0)
[2019-12-05 01:17] LABS: Blood Gas Specimen Type VEN; O2 Delivery Device Room Air; SITE OTHER
[2019-12-05] MEDS: proMETHazine 25 MG/ML Syringe IV (01:17)
[2019-12-05] MEDS: Ondansetron 4 MG/2 ML Vial 8 MG IV (01:17)
[2019-12-05] MEDS: DiphenhydrAMINE 50 MG/ML Syringe IV (01:17)
[2019-12-05 01:18] LABS: Time Given 107; VBG pH 7.45 (7.32-7.42)
[2019-12-05] MEDS: Dicyclomine 20 MG/2 ML Vial IM (01:18)
[2019-12-05 01:19] LABS: VBG BASE EXCESS -2 mmol/L (-1.0-3.5); VBG Bicarbonate 22 mmol/L (22-26); VBG PO2 39 mmHg (25-40); VBG SO2 77 % (50-70); VBG pCO2 31.7 mmHg (41-51)
[2019-12-05 01:27] LABS: ALB/GLOB Ratio 0.6 RATIO (0.9-2.4); AST(SGOT) 10 U/L (15-37); Alanine Aminotransfer ALT/SGPT 11 U/L (13-56); Albumin, Serum 2.7 g/dL (3.2-5.0); Alkaline Phosphatase 159 U/L (45-117); Anion Gap 8 (5-15); BUN 15 mg/dL (7-18); BUN/Creat Ratio 17.4 RATIO (10-20); Calcium,Total 8.7 mg/dL (8.5-10.1); Chloride 105 mmol/L (98-107); Creatinine, Serum 0.86 mg/dL (0.55-1.02); EST Glomerular Filtration Rate 77 mL/min (>60); Est Glom Filt Rate - Afr Amer 94 mL/min (>60); Globulin 4.4 g/dL (2.2-4.2); Glucose 364 mg/dL (74-106); Lipase 160 U/L (73-393); Potassium 3.5 mmol/L (3.5-5.1); Protein, Total 7.1 g/dL (6.4-8.2); Sodium Level 136 mmol/L (136-145)
[2019-12-05 01:29] LABS: Internal QC Validated? YES +Cl - CLEAR BKGD
[2019-12-05 01:30] LABS: Pregnancy, Serum, hCG Quali. NEGATIVE Negative
[2019-12-05] MEDS: Insulin Lispro 100 UNIT/ML INSULN.PEN 8 UNIT SC (02:11)
--- NOTE | 2019-12-05 02:12 | ED.RN ---
PT STATES HER STOMACH IS TOO UPSET TO TAKE GI COCKTAIL AT THIS TIME.
[2019-12-05 02:13] VITALS: BP 147/87; PULSE 122; RESP 18; TEMP 37.5; O2SAT 99
[2019-12-05] MEDS: Ondansetron 4 MG/2 ML Vial IV (02:48)
[2019-12-05] MEDS: DiphenhydrAMINE 50 MG/ML Syringe 12.5 MG IV (02:48)
[2019-12-05 03:02] VITALS: PULSE 80; RESP 16; O2SAT 98
--- NOTE | 2019-12-19 11:41 | CM.ED ---
SOCIAL WORK ED CARE PLAN REVIEWED AND APPROVED BY DR. CHICAS ON 12/14/2019. COPY OF ED CARE PLAN MAILED VIA CERTIFIED MAIL TO PATIENT ALONG WITH [employer] (TRACKING #[phone] ATTEMPTED TO CONTACT PATIENT TO UPDATE ON ED CARE PLAN. NO ANSWER, LEFT VOICEMAIL WITH THIS WORKER'S CALL BACK INFORMATION. Joanna ZAVALA, SALOON KEEPER, STRATEGIC PARTNERSHIP SPECIALIST.
== END 2019-12-05 03:11 | disposition home or self-care (01) ==
PROVIDERS: Emergency Provider Emergency Medicine; PCP Physical Medicine & Rehabilitation
DX: R11.2 Nausea with vomiting, unspecified (principal); E86.0 Dehydration; E10.65 Type 1 diabetes mellitus with hyperglycemia; M06.9 Rheumatoid arthritis, unspecified; M79.7 Fibromyalgia; M32.9 Systemic lupus erythematosus, unspecified; R10.9 Unspecified abdominal pain; Z79.82 Long term (current) use of aspirin; Z79.4 Long term (current) use of insulin
CPT/HCPCS: 96365; 36591; 74177; 80053; 82009; 82803; 83690; 84703; 85025; 96361; 96372; 96375; 96376; 99282; J7030; Q9967; A4216; J2405

== ENCOUNTER 2019-12-11 13:48 | Inpatient (IN) | payer MEDICAID, SELFPAY ==
[2019-12-11] VITALS (11 sets, daily range): BP systolic 117–143; BP diastolic 68–97; PULSE 98–120; RESP 16–23; TEMP 36.6–37.4; O2SAT 96–99; BMI 18.3; BMI 18.9; BMI 19.0
--- NOTE | 2019-12-11 14:00 | RAD_ITS ---
STUDY: X-RAY CHEST REASON FOR EXAM: Female, 39 years old. Ill, nausea TECHNIQUE: Single AP portable view of the chest. COMPARISON: Comparison is made with prior study dated November 09, 2019. FINDINGS: A right-sided portacatheter is seen with tip at the junction of the superior vena cava and right atrium. The lungs are clear and expanded. There is no demonstrated pleural abnormality. Normal size heart. Normal mediastinum and emigdio. Normal visualized pulmonary arteries. Normal visualized aortic arch and descending thoracic aorta. Normal visualized thoracic spine. Normal visualized ribs, clavicles, and shoulders. There is no demonstrated abnormality of the visualized soft tissue structures of the upper abdomen. RAD/Chest 1 View (Portable) IMPRESSION: No acute abnormality is seen. Electronically Signed: Bhavesh Feliciano, at 14:48 EDT , Service support ,
--- NOTE | 2019-12-11 14:02 | EKG12_ITS ---
Test Reason : CHEST PAIN Blood Pressure : / mmHG Vent. Rate : 115 BPM Atrial Rate : 115 BPM P-R Int : 116 ms QRS Dur : 082 ms QT Int : 326 ms P-R-T Axes : 061 000 013 degrees QTc Int : 450 ms Sinus tachycardia Minimal voltage criteria for LVH, may be normal variant Borderline ECG Confirmed by WADE NAVARRO, CRISELDA ([id number]), brands editor DANYELL EVANS ([id number]) on 12/13/2019 9:37:33 AM Referred By: ITZEL Confirmed By:CRISELDA OLVERA MD
--- NOTE | 2019-12-11 14:08 | ED.VIS.GEN ---
History of Present Illness Chief Complaint: General Illness Informant: Patient Narrative: She has a history of sickle cell disease she is presenting with 2 to 3-day of nausea, she has myalgias and arthralgias throughout. This is consistent with prior sickle cell disease she denies any fever chills cough or congestion. She is not confused she does not have a headache she has no vision changes or speech difficulties she has no weakness or paresthesias. She is on hydroxyurea and is taking it. Past Medical History - Allergies and Home Meds Allergies/Adverse Reactions: Allergies ketorolac [From Toradol] Allergy (Verified 12/11/19 13:50) Hives metoclopramide [From Reglan] Allergy (Verified 12/11/19 13:50) Hives morphine Allergy (Verified 12/11/19 13:50) Hives prochlorperazine [From Compazine] Allergy (Verified 12/11/19 13:50) Hives Primary Care Physician: Esequiel López [Primary Care Provider] - Past Medical History: - - Sickle cell disease Surgical History: - - [facility], lung surgery for nodules Smoking Status: Never smoker Review of Systems General: Denies: Fever Eyes: Denies: Visual changes - bilaterally ENT: Denies: Rhinorrhea, Sore throat Cardiovascular: Denies: Chest pain Respiratory: Denies: Dyspnea, Cough, Sputum Gastrointestinal: Reports: Nausea, Vomiting. Denies: Abdominal pain, Diarrhea Genitourinary: Denies: Dysuria Musculoskeletal: Reports: Myalgias, Arthralgias, Back pain. Denies: Neck pain, Swelling, Extremity Pain Skin: Denies: Rash, Abscess Neurological: Denies: Headache, Weakness Hematologic: Denies: Easy bruising, Easy bleeding Physical Exam Vital Signs/Narrative: Vital Signs Temp Pulse Resp BP Pulse Ox 12/11/19 13:49 98 F 120 H 23 H 143/79 H 96 General: - - Patient appears in some distress Head: Normocephalic, Atraumatic Eyes: Perrl ENT: Moist mucous membranes, No rhinorrhea Neck: Supple Cardiovascular: Regular rate, Regular rhythm Respiratory: No distress, CTA bilaterally Abdomen: Soft, - - There is some slight epigastric tenderness she tells me this is consistent with other time she has had sickle cell crises Back: Normal Inspection. Negative for: CVA tenderness Extremities: No edema, - - Full range of motion Skin: Normal color, No rash Neurological: Alert, Normal Strength, Normal Sensation Psychological: Tearful Diagnostic/Tx/Re-eval - Rhythm Strip Rhythm Strip: Sinus Rhythm Rate: 115 Ectopy: None - EKG Initial EKG Interpretation: - - Normal sinus rhythm with a rate of 115. Normal TX and QTc intervals. No ischemic changes. - Medical Decision Making Has intractable pain. I will talk to the hospitalist for admission she is gotten multiple doses of medications. Otherwise her blood work is unremarkable. ED Disposition - Plan for ED Patient: Referrals: Esequiel López [Primary Care Provider] -
[2019-12-11 14:27] LABS: Absolute Lymphocyte Count 3.46 X10^3/uL (0.83-4.51); Absolute Neutrophil Count 8.2 X10^3/uL (2.0-7.7); Basophil# 0.07 X10^3/uL; Basophil% 0.6 % (0-1); Eosinophil# 0.02 X10^3/uL; Eosinophils% 0.2 % (0-5); Hematocrit 27.5 % (37-47); Hemoglobin 8.5 g/dL (12.0-15.0); Lymphocyte # 3.46 X10^3/ul (4.0); Lymphocyte % 27.6 % (19-41); Mean Corp Hgb Conc 30.9 g/dL (32-36); Mean Corpuscular Hgb 23.2 pg (27.0-32.0); Mean Corpuscular Volume 74.9 fL (81-99); Mean Platelet Vol. 10.7 fl (6.2-12.0); Monocyte% 5.6 % (0-10); NRBC Flagged by Analyzer 0.2 % (0-5); Neutrophil # 8.23 X10^3/uL (2.7-7.7); Neutrophil % 65.5 % (47-70); Platelet Count 347 K/mm3 (150-450); RBC Distribution Width CV 13.8 % (11.6-14.6); RBC Distribution Width SD 37.2 fl (35.1-43.9); RET-HE 26.9 pg (30-35); Red Blood Count 3.67 M/mm3 (4.2-5.4); Reticulocyte Count 0.83 % (0.5-1.5); White Blood Count 12.5 K/mm3 (4.4-11.0)
[2019-12-11] MEDS: 0.9% Normal Saline 1,000 ML 1000 ML IV (14:31)
[2019-12-11] MEDS: Ondansetron 4 MG/2 ML Vial IV ×4 (14:32→22:10)
[2019-12-11] MEDS: DiphenhydrAMINE 50 MG/ML Syringe IV ×2 (14:32→15:41)
[2019-12-11] MEDS: proMETHazine 25 MG/ML Syringe IV ×2 (14:32→15:41)
[2019-12-11] MEDS: HYDROmorphone 1 MG/ML Syringe IV ×4 (14:32→22:16)
[2019-12-11 14:45] LABS: ALB/GLOB Ratio 0.6 RATIO (0.9-2.4); AST(SGOT) 13 U/L (15-37); Alanine Aminotransfer ALT/SGPT 9 U/L (13-56); Albumin, Serum 2.6 g/dL (3.2-5.0); Alkaline Phosphatase 129 U/L (45-117); Anion Gap 4 (5-15); BUN 9 mg/dL (7-18); BUN/Creat Ratio 12.4 RATIO (10-20); Chloride 112 mmol/L (98-107); Creatinine, Serum 0.72 mg/dL (0.55-1.02); EST Glomerular Filtration Rate 95 mL/min (>60); Est Glom Filt Rate - Afr Amer 115 mL/min (>60); Estimated Creatinine Clearance 87.02 ml/min; Glucose 142 mg/dL (74-106); Potassium 3.1 mmol/L (3.5-5.1); Protein, Total 6.6 g/dL (6.4-8.2); Sodium Level 140 mmol/L (136-145)
[2019-12-11 14:52] LABS: Mucous, Urine 0 SEEN /hpf (<or=2+)
[2019-12-11 14:54] LABS: Color, Urine Amber (Yellow); Glucose, Dipstick 1000 mg/dl (Normal); Ketone-Dipstick 5 mg/dl (Negative); Leukocyte Esterase-Dipstick 100 /ul (Negative); Nitrite-Dipstick Negative (Negative); Occult Blood-Urine 250 /ul (Negative); Protein-Dipstick 30 mg/dl (Negative); Specific Gravity, Urine 1.015 (1.002-1.030); Urine Bilirubin Dipstick Negative (Negative); Urine Clarity Cloudy (Clear); Urine Urobilinogen Normal (Normal)
[2019-12-11 14:59] LABS: Red Blood Cells-Urine 50-100 SEEN /hpf (0-5); Squamous Epithelial Cells - UA 0-5 SEEN /hpf (5-10); White Blood Cells 0-5 SEEN /hpf (0-5)
[2019-12-11 15:00] LABS: Bacteria RARE /hpf (None Seen)
--- NOTE | 2019-12-11 15:56 | PCM.HP.STD ---
Problem List (1) Sickle cell anemia Status: Chronic (2) Type 1 diabetes mellitus Status: Chronic (3) Fibromyalgia Status: Chronic (4) Rheumatoid arthritis Status: Chronic (5) Anemia Status: Chronic History of Present Illness Date of Admission: 12/11/19 Chief Complaint: Body pains and aches, nausea and vomiting. The patient is a 39 year old F with past medical history as mentioned above presented to the emergency room because of body aches and pains, chest pain as well as nausea and vomiting. Her illness started around 3 days ago with generalized body aches and pains involving her chest, upper and lower back, both arms and legs, dull consistent pain, sometimes sharp, 10 out of 10 in severity, associated with persistent nausea and vomiting over the last 2 days and she was not able to keep anything down with her stomach. She denied any aggravating or relieving factors to this pain. She denies fever or chills. She reported mild cough, no sputum production. She denied headache, vision or speech changes. She denied sick contacts or recent travel. In the emergency department, she was afebrile, tachycardic, blood pressure was stable, pulse ox was 97% on room air. Routine blood work was remarkable for mild leukocytosis, hemoglobin of 8.5 g/dL, potassium 3.1, otherwise normal. LFT was unremarkable. EKG revealed sinus tachycardia, no acute segment changes. Troponin was negative. Chest x-ray showed no acute findings. Urinalysis revealed cloudy urine, negative for nitrite, there was 50-100 RBCs, 0-5 WBCs and rare bacteria seen. She is being admitted for suspected sickle cell crisis, intractable nausea and vomiting with hypokalemia. Past Medical History Past Medical History (Chronic Problems): Chronic Problems Sickle cell anemia (Chronic) Type 1 diabetes mellitus (Chronic) Fibromyalgia (Chronic) Rheumatoid arthritis (Chronic) Lupus (Chronic) Anemia (Chronic) Allergies ketorolac [From Toradol] Allergy (Verified 12/11/19 13:50) Hives metoclopramide [From Reglan] Allergy (Verified 12/11/19 13:50) Hives morphine Allergy (Verified 12/11/19 13:50) Hives prochlorperazine [From Compazine] Allergy (Verified 12/11/19 13:50) Hives Home Medications: Ambulatory Orders Medication Instructions Recorded DiphenhydrAMINE [Benadryl] 50 mg PO Q4H 09/23/19 Ondansetron [Zofran] 8 mg PO Q4H PRN PRN 09/23/19 proMETHazine tablet [Phenergan 25 mg PO Q4H PRN PRN 09/23/19 tablet] Aspirin 81 mg PO DAILY 10/11/19 Folic Acid 1 mg PO DAILY 10/11/19 Hydromorphone HCl [Dilaudid] 8 mg PO Q4H PRN PRN 10/11/19 Hydroxyurea 500 mg PO DAILY 10/11/19 Insulin Aspart [Novolog Flexpen 20 units SUBCUT TIDCM 10/11/19 ([facility])] Oxycodone HCl/Acetaminophen 1 tab PO Q4H PRN PRN 10/11/19 [Percocet 10-325 mg Tablet] Prednisone 20 mg PO DAILY 10/11/19 Pregabalin [Lyrica] 200 mg PO BID 10/11/19 Insulin Glargine,Hum.rec.anlog 40 unit SQ BID 12/11/19 [Lantus Solostar] Surgical History: - - [facility], lung surgery for nodules Psychiatric History: No pertinent psych hx [employer] History: No pertinent [employer] history Lives: With Family Smoking Status: Former smoker Alcohol: None Drugs: None - *Family History Maternal History Items: No pertinent history Paternal History Items: No pertinent history Review of Systems Constitutional: Reports: Anorexia, Weakness, Fatigue. Denies: Chills, Fever Eyes: Denies: Blurred vision, Double vision, Drainage, Redness HEENT: Denies: Difficulty Hearing, Ear Pain, Eye Pain, Nasal bleeding, Sore Throat Cardiovascular: Reports: Chest Pain. Denies: Edema, Heaviness, Light Headedness, Orthopnea, Paroxysmal Noc. Dyspnea, Syncope Respiratory: Reports: Cough, Pleuritic Pain. Denies: Shortness of Breath, Sputum production, Wheezing Gastrointestinal: Reports: Abdominal Pain, Nausea, Vomiting. Denies: Constipation, Diarrhea Genitourinary: Denies: Dysuria, Frequency, Hematuria Musculoskeletal: Reports: Arm Pain, Back Pain, Foot Pain, Leg Pain Skin: Denies: Dryness, Rash Neurological: Denies: Balance problems, Double vision, Change in Speech, Slurred speech, Confusion, Focal weakness, Headaches, Incoordination Psychiatric: Denies: Anxiety, Depression Endocrine: Denies: Change in Body Habitus, Polydipsia, Polyuria VTE Information - Inpt Only VTE Present on Admission: No VTE Mechan Device Prophylaxis: None VTE Pharm Prophylaxis ordered?: No - Physical Exam Vitals/I&O's: Vital Signs Temp Pulse Resp BP Pulse Ox 98 F 120 H 23 H 143/79 H 97 12/11/19 13:49 12/11/19 13:49 12/11/19 13:49 12/11/19 13:49 12/11/19 14:51 Oxygen Flow Rate (L/min) 3 Oxygen Delivery Method Room Air Weight: 117 lb Body Mass Index (BMI) 18.3 Finger Stick Blood Glucose 306 General: Alert, Oriented x3, Cooperative, No apparent distress HEENT: Atraumatic, PERRLA, EOMI, Normocephalic Oral: Moist Mucosa, No Gingival or Mucosal Lesions/ Ulcerations Neck: Supple, No JVD, Negative Carotid Bruits, Trachea Midline, Thyroid Normal Size and Texture Lungs: Clear to auscultation, Normal air movement, No rhonchi, No wheeze, No rales, Diminished Cardiovascular: Regular rate, Regular Rhythm, Normal S1, Normal S2, PMI Normal, Tachycardic Abdomen: Bowel Sounds Present, Soft, Non-Distended, No Hepato-splenomegaly, Tender Extremities: No clubbing, No cyanosis, No edema Skin: No rashes, No breakdown Lymphatic: No Cervical, Supraclavicular, or Inguinal Adenopathy Neurological: Cranial nerves II-XII grossly intact, Motor Exam 5/5 strength throughout Psych/Mental Status: Appropriate, Flat Affect, Alert and oriented to time, place, person, mood and affect Laboratory Results 12/11/19 14:15: WBC 12.5 H, RBC 3.67 L, Hgb 8.5 L, Hct 27.5 L, MCV 74.9 L, MCH 23.2 L, MCHC 30.9 L, RDW Std Deviation 37.2, RDW Coeff of Shireen 13.8, Plt Count 347, MPV 10.7, Immature Gran % (Auto) 0.500, Neut % (Auto) 65.5, Lymph % (Auto) 27.6, [place] % (Auto) 5.6, Eos % (Auto) 0.2, Baso % (Auto) 0.6, Absolute Neuts (auto) 8.2 H, Absolute Lymphs (auto) 3.46, Nucleated RBC % 0.2, Retic Count 0.83, Immature Retic Fraction 11.60, Retic Hgb Equivalent 26.9 L 12/11/19 14:15: Sodium 140, Potassium 3.1 L, Chloride 112 H, Carbon Dioxide 24.0, Anion Gap 4 L, BUN 9, Creatinine 0.72, Estim Creat Clear Calc 87.02, Est GFR (MDRD) Af Amer 115, Est GFR (MDRD) Non-Af 95, BUN/Creatinine Ratio 12.4, Glucose 142 H, Calcium 8.0 L, Total Bilirubin 0.20, AST 13 L, ALT 9 L, Alkaline Phosphatase 129 H, Troponin I < 0.015, Total Protein 6.6, Albumin 2.6 L, Globulin 4.0, Albumin/Globulin Ratio 0.6 L 12/11/19 14:48: Urine Color Jocelin, Urine Clarity Cloudy, Urine pH 6.0, Ur Specific [place] 1.015, Urine Protein 30 H, Urine Glucose (UA) 1000 H, Urine Ketones 5 H, Urine Occult Blood 250 H, Urine Nitrite Negative, Urine Bilirubin Negative, Urine Urobilinogen Normal, Ur Leukocyte Esterase 100 H, Urine RBC 50-100 SEEN, Urine WBC 0-5 SEEN, Ur Squamous Epith Cells 0-5 SEEN, Urine Bacteria RARE, Urine Mucus 0 SEEN Clinical Impression(s) from Imaging Studies Chest X-Ray 12/11/19 14:00 IMPRESSION: No acute abnormality is seen. Electronically Signed: Bhavesh Jodie, at 14:48 EDT , Service support , Current Medications Sodium Chloride () 1,000 mls @ 1,000 mls/hr IV .Q1H KATERINA Stop: 12/11/19 15:59 Last Admin: 12/11/19 14:31 Dose: 1,000 mls/hr Documented by: Potassium Chloride () 10 meq in 100 mls @ 100 mls/hr IV BOLUS Q1H KATERINA Stop: 12/11/19 19:44 Assessment/Plan This is a 39 years old female patient presented to the emergency room because of generalized body pains and aches including chest pain, back pain, pain on both legs and arms as well as at that up with nausea and vomiting and she is being admitted for suspected sickle cell crisis, intractable nausea and vomiting as well as hypokalemia. #1 suspected sickle cell crisis: This is based on symptoms. No evidence of acute endorgan damage, no acute chest syndrome, no evidence of hemolysis, no evidence of acute infection. CBC revealed mild leukocytosis, chronic anemia with stable hemoglobin, platelet count is normal. LFT was unremarkable. Urinalysis revealed cloudy urine with microscopic hematuria, no evidence of acute cystitis. Patient has been afebrile. Plan: Admit to PCU, cardiac monitoring, IV fluids, IV antiemetics, IV Benadryl PRN, IV Dilaudid PRN for pain, chest x-ray, continue hydroxyurea and folic acid, check pro time and INR, repeat CBC and CMP tomorrow morning, PT OT evaluation and treatment #2 intractable nausea and vomiting: Likely due to #1. Patient could not keep any food or drinks down in her stomach over the last 3 days. She could not keep the pain medications that she has been taking chronically. Plan: IV fluids as above, IV Zofran with IV Benadryl PRN, IV Pepcid. #3 hypokalemia: Due to intractable nausea and vomiting. Potassium is 3.1. Plan to replace potassium with IV potassium chloride, repeat CMP tomorrow morning. #4 type 1 diabetes mellitus: ADA diet, Accu-Cheks, insulin sliding scale, continue home doses of Lantus and NovoLog 3 times daily. #5 sickle cell anemia: Continue hydroxyurea and folic acid, other plan as above. #6 rheumatoid arthritis/fibromyalgia: She is on steroids for long time. Patient mentioned that she has been taking her prednisone every day so I doubt any acute renal sufficiency. Plan to continue prednisone. Her vital signs are stable apart from tachycardia. If her blood pressure start to drop, we may need to start her on stress dose of IV steroids. #7 DVT prophylaxis: SCDs. This note was generated with [employer] dictation software. It may contain incorrect words, spelling, and punctuation that were not noted in checking the note before signing. Inpatient E&M: [id number] Init Hosp L3
--- NOTE | 2019-12-11 16:01 | NURSING ---
PCU INTRACTABLE N, V, ASHELFAH
[2019-12-11] MEDS: Potassium Chloride 10mEq/100mL 10 MEQ/100 ML IV.SOLN. 100 MEQ IV BOLUS (16:02)
[2019-12-11 17:12] LABS: Prothrombin Time (Protime)PT. 12.8 SECONDS (11.7-14.9)
[2019-12-11 17:56] LABS: Bedside Glucose 179 mg/dL (70-110)
[2019-12-11] MEDS: DiphenhydrAMINE 50 MG/ML Syringe 25 MG IV ×2 (18:02→22:14)
[2019-12-11] MEDS: Insulin Lispro 100 UNIT/ML INSULN.PEN SC ×2 (18:02→22:30)
[2019-12-11] MEDS: 0.9% Saline Lock 10 ML Syringe IV ×2 (18:03→22:11)
[2019-12-11] MEDS: Famotidine 200 MG/20 ML MDV 20 MG in 0.9% Normal Saline (Pres. free 8 ML 300 MG IV (22:18)
[2019-12-12] VITALS (9 sets, daily range): BP systolic 108–134; BP diastolic 45–90; PULSE 98–114; RESP 14–18; TEMP 36.7–36.9; O2SAT 100
[2019-12-12 00:11] LABS: Bedside Glucose 262 mg/dL (70-110)
[2019-12-12] MEDS: HYDROmorphone 1 MG/ML Syringe IV ×2 (02:19→06:30)
[2019-12-12] MEDS: Ondansetron 4 MG/2 ML Vial IV ×6 (02:20→23:24)
[2019-12-12] MEDS: DiphenhydrAMINE 50 MG/ML Syringe 25 MG IV ×2 (02:21→06:32)
[2019-12-12] MEDS: 0.9% Saline Lock 10 ML Syringe IV ×10 (02:21→23:25)
[2019-12-12 08:24] LABS: Absolute Lymphocyte Count 2.82 X10^3/uL (0.83-4.51); Absolute Neutrophil Count 8.8 X10^3/uL (2.0-7.7); Basophil# 0.06 X10^3/uL; Basophil% 0.5 % (0-1); Eosinophil# 0.07 X10^3/uL; Eosinophils% 0.6 % (0-5); Hematocrit 25.4 % (37-47); Hemoglobin 7.8 g/dL (12.0-15.0); Lymphocyte # 2.82 X10^3/ul (4.0); Lymphocyte % 22.3 % (19-41); Mean Corp Hgb Conc 30.7 g/dL (32-36); Mean Corpuscular Hgb 23.1 pg (27.0-32.0); Mean Corpuscular Volume 75.1 fL (81-99); Mean Platelet Vol. 10.9 fl (6.2-12.0); Monocyte# 0.84 X10^3/uL; Monocyte% 6.7 % (0-10); NRBC Flagged by Analyzer 0 % (0-5); Neutrophil # 8.79 X10^3/uL (2.7-7.7); Neutrophil % 69.5 % (47-70); Platelet Count 327 K/mm3 (150-450); RBC Distribution Width CV 14.1 % (11.6-14.6); RBC Distribution Width SD 37.8 fl (35.1-43.9); Red Blood Count 3.38 M/mm3 (4.2-5.4); White Blood Count 12.6 K/mm3 (4.4-11.0)
[2019-12-12] MEDS: Insulin Lispro 100 UNIT/ML INSULN.PEN SC ×2 (08:46→22:00)
[2019-12-12] MEDS: Insulin Lispro 100 UNIT/ML INSULN.PEN 20 UNIT SC (08:47)
[2019-12-12 08:48] LABS: ALB/GLOB Ratio 0.6 RATIO (0.9-2.4); AST(SGOT) 20 U/L (15-37); Alanine Aminotransfer ALT/SGPT 11 U/L (13-56); Albumin, Serum 2.4 g/dL (3.2-5.0); Alkaline Phosphatase 121 U/L (45-117); Anion Gap 5 (5-15); BUN 6 mg/dL (7-18); BUN/Creat Ratio 7.7 RATIO (10-20); Calcium,Total 8.2 mg/dL (8.5-10.1); Chloride 110 mmol/L (98-107); Creatinine, Serum 0.78 mg/dL (0.55-1.02); EST Glomerular Filtration Rate 87 mL/min (>60); Est Glom Filt Rate - Afr Amer 105 mL/min (>60); Estimated Creatinine Clearance 78.25 ml/min; Globulin 3.8 g/dL (2.2-4.2); Glucose 264 mg/dL (74-106); Potassium 3.8 mmol/L (3.5-5.1); Protein, Total 6.2 g/dL (6.4-8.2); Sodium Level 136 mmol/L (136-145)
[2019-12-12] MEDS: HYDROmorphone 1 MG/ML Syringe 2 MG IV ×4 (10:45→23:24)
[2019-12-12] MEDS: proMETHazine 25 MG/ML Syringe IV ×4 (10:46→23:24)
[2019-12-12] MEDS: Famotidine 200 MG/20 ML MDV 20 MG in 0.9% Normal Saline (Pres. free 8 ML 300 MG IV ×2 (10:46→21:51)
[2019-12-12] MEDS: DiphenhydrAMINE 50 MG/ML Syringe IV ×4 (10:46→23:24)
[2019-12-12 11:01] LABS: Bedside Glucose 241 mg/dL (70-110)
[2019-12-12 11:06] LABS: Ferritin 4 ng/mL (8-252); Iron 23 ug/dL (50-170); Iron Binding Capacity,Total 305 ug/dL (250-450); PERCENT IRON SATURATION 7.5 % (15.0-55.0)
--- NOTE | 2019-12-12 11:30 | PN_ITS ---
<Felix Edgar - Last Filed: 12/12/19 12:32> Reason for Visit: all over pain Subjective: pt c/o pain all over. joints, abdomen, chest, head, back, uncontrolled with dilaudid and oxycodone. The patient repeatedly told me that she is currently taking both 10 mg oxycodone q4h and 8 mg dilaudid q4h at home for pain, and that this is prescribed by her pain management physician Dr. Esequiel López. I asked her this multiple times in order to verify that this is what she was taking. I opened her OARRS and told her that according to it she had not been prescribed dilaudid recently. She then stated that it was two months ago Dr. López prescribed it. I told her that according to her OARRS report she had not received it in what appears to be several years. At this point she told me that it was several years ago that Dr. Ayala prescribed it to her. She then stated that she is only using oxy 10 mg at home now. The patient has vomited this AM and remains nauseous despite phenergan and zofran. Vitals/I&O's: Vital Signs Temp Pulse Resp BP Pulse Ox 98.5 F 114 H 18 111/60 100 12/12/19 02:33 12/12/19 11:00 12/12/19 02:33 12/12/19 02:33 12/12/19 02:33 Oxygen Flow Rate (L/min) 3 Oxygen Delivery Method Room Air Weight: 113 lb 15.664 oz Body Mass Index (BMI) 18.9 Finger Stick Blood Glucose 306 Intake and Output for Last 24 Hours 12/10/19 12/11/19 12/12/19 23:59 23:59 23:59 Intake Total 1110 / 1310 1510 / 1510 Balance 1110 / 1310 1510 / 1510 General: Alert, Oriented x3, Cooperative HEENT: Atraumatic, PERRLA, EOMI, Normocephalic Neck: Supple, No JVD, Negative Carotid Bruits Lungs: Clear to auscultation, Normal air movement Cardiovascular: Regular rate, No murmurs Abdomen: Bowel Sounds Present, Soft, Non Tender Extremities: No edema, Capillary Refill Less than 3 Seconds Skin: No rashes, No breakdown Musculoskeletal: No Tenderness to Palpation of Joints or Extremities Neurological: Cranial nerves II-XII grossly intact Psych/Mental Status: Normal Affect, Appropriate, Alert and oriented to time, place, person, mood and affect Laboratory Results 12/11/19 14:15: WBC 12.5 H, RBC 3.67 L, Hgb 8.5 L, Hct 27.5 L, MCV 74.9 L, MCH 23.2 L, MCHC 30.9 L, RDW Std Deviation 37.2, RDW Coeff of Shireen 13.8, Plt Count 347, MPV 10.7, Immature Gran % (Auto) 0.500, Neut % (Auto) 65.5, Lymph % (Auto) 27.6, [place] % (Auto) 5.6, Eos % (Auto) 0.2, Baso % (Auto) 0.6, Absolute Neuts (auto) 8.2 H, Absolute Lymphs (auto) 3.46, Nucleated RBC % 0.2, Retic Count 0.83, Immature Retic Fraction 11.60, Retic Hgb Equivalent 26.9 L 12/11/19 14:15: Sodium 140, Potassium 3.1 L, Chloride 112 H, Carbon Dioxide 24.0, Anion Gap 4 L, BUN 9, Creatinine 0.72, Estim Creat Clear Calc 87.02, Est GFR (MDRD) Af Amer 115, Est GFR (MDRD) Non-Af 95, BUN/Creatinine Ratio 12.4, Glucose 142 H, Calcium 8.0 L, Total Bilirubin 0.20, AST 13 L, ALT 9 L, Alkaline Phosphatase 129 H, Troponin I < 0.015, Total Protein 6.6, Albumin 2.6 L, Globulin 4.0, Albumin/Globulin Ratio 0.6 L 12/11/19 14:20: PT 12.8, INR 1.0 12/11/19 14:48: Urine Color Jocelin, Urine Clarity Cloudy, Urine pH 6.0, Ur Specific [place] 1.015, Urine Protein 30 H, Urine Glucose (UA) 1000 H, Urine Ketones 5 H, Urine Occult Blood 250 H, Urine Nitrite Negative, Urine Bilirubin Negative, Urine Urobilinogen Normal, Ur Leukocyte Esterase 100 H, Urine RBC 50- 100 SEEN, Urine WBC 0-5 SEEN, Ur Squamous Epith Cells 0-5 SEEN, Urine Bacteria RARE, Urine Mucus 0 SEEN 12/11/19 17:53: POC Glucose 179 H 12/11/19 22:08: POC Glucose 262 H 12/12/19 08:00: POC Glucose 241 H 12/12/19 08:10: WBC 12.6 H, RBC 3.38 L, Hgb 7.8 L, Hct 25.4 L, MCV 75.1 L, MCH 23.1 L, MCHC 30.7 L, RDW Std Deviation 37.8, RDW Coeff of Shireen 14.1, Plt Count 327, MPV 10.9, Immature Gran % (Auto) 0.400, Neut % (Auto) 69.5, Lymph % (Auto) 22.3, [place] % (Auto) 6.7, Eos % (Auto) 0.6, Baso % (Auto) 0.5, Absolute Neuts (auto) 8.8 H, Absolute Lymphs (auto) 2.82, Nucleated RBC % 0 12/12/19 08:10: Sodium 136, Potassium 3.8, Chloride 110 H, Carbon Dioxide 21.0, Anion Gap 5, BUN 6 L, Creatinine 0.78, Estim Creat Clear Calc 78.25, Est GFR (MDRD) Af Amer 105, Est GFR (MDRD) Non-Af 87, BUN/Creatinine Ratio 7.7 L, Glucose 264 H, Calcium 8.2 L, Total Bilirubin 0.20, AST 20, ALT 11 L, Alkaline Phosphatase 121 H, Total Protein 6.2 L, Albumin 2.4 L, Globulin 3.8, Albumin/Globulin Ratio 0.6 L 12/12/19 08:10: Iron 23 L, TIBC 305, Iron Saturation 7.5 L, Ferritin 4 L Current Medications Acetaminophen (Tylenol) 650 mg PO Q6H PRN PRN PRN Reason: Pain Score 1-10/Temp > 100.7 F Aspirin (Aspirin, Baby) 81 mg PO DAILY@0800 [facility] Dextrose (D50w Syringe) 0 gm IV X1 PRN; Protocol PRN Reason: Hypoglycemia Diphenhydramine HCl (Benadryl) 50 mg IV Q4H PRN PRN PRN Reason: Nausea, vomiting, itching Last Admin: 12/12/19 10:46 Dose: 50 mg Documented by: Folic Acid (Folic Acid) 1 mg PO DAILY@0800 [facility] Glucagon () 1 mg IM .X1 PRN PRN Reason: Hypoglycemia Hydromorphone HCl (Dilaudid Inj) 2 mg IV Q3H PRN PRN PRN Reason: Pain Score 6-10/10 Last Admin: 12/12/19 10:45 Dose: 2 mg Documented by: Hydroxyurea (Hydrea) 500 mg PO DAILY [facility] Potassium Chloride/Sodium Chloride () 1,000 mls @ 100 mls/hr IV .Q10H [facility] Last Admin: 12/12/19 05:08 Dose: 100 mls/hr Documented by: Famotidine 20 mg/ Sodium (Chloride) 10 mls @ 300 mls/hr IV Q12 [facility] Last Infusion: 12/12/19 10:48 Dose: Infused Documented by: Insulin Glargine (Lantus (Bkc)) 40 units SC BID [facility] Last Admin: 12/12/19 08:46 Dose: 40 units Documented by: Insulin Human Lispro (Humalog Kwikpen (Bkc)) 0 unit SC ACHS [facility]; Protocol Last Admin: 12/12/19 08:46 Dose: 2 units Documented by: Insulin Human Lispro (Humalog Kwikpen (Bkc)) 20 unit SC TIDCM [facility] Last Admin: 12/12/19 08:47 Dose: 20 units Documented by: Ondansetron HCl (Zofran) 4 mg IV Q4H PRN PRN PRN Reason: NAUSEA/VOMITING Last Admin: 12/12/19 10:46 Dose: 4 mg Documented by: Oxycodone HCl (Oxycontin) 10 mg PO BID [facility] Prednisone () 20 mg PO DAILY@0800 [facility] Pregabalin (Lyrica) 200 mg PO BID [facility] Last Admin: 12/12/19 00:42 Dose: Not Given Documented by: Promethazine HCl (Phenergan Tablet) 25 mg PO Q4H PRN PRN PRN Reason: NAUSEA Promethazine HCl (Phenergan) 25 mg IV Q4H PRN PRN PRN Reason: NAUSEA/VOMITING Last Admin: 12/12/19 10:46 Dose: 25 mg Documented by: Senna/Docusate Sodium (Senokot-S, Evelia-Colace) 2 tablet PO BID PRN PRN PRN Reason: Constipation Sodium Chloride () 10 - 40 ml IV UD PRN PRN Reason: SALINE FLUSH Last Admin: 12/12/19 10:56 Dose: 20 ml Documented by: Zolpidem Tartrate (Ambien (Generic)) 5 mg PO QHS PRN PRN PRN Reason: INSOMNIA STROKE Vital Signs/Narrative: Vital Signs Pulse 12/12/19 11:00 114 H Medical Necessity - Tobacco Use Smoking Status: Never smoker Assessment/Plan 1. 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 However, see Subjective, the patient was repeatedly dishonest with me about her home pain regimen and has reported the wrong home pain meds in the ER as well. This is highly suspicious for drug seeking behavior. I called the pain management physician that she reported being a patient of, Dr. Esequiel López. I have requested information to confirm if she is still active and what her regimen is, and if she has a pain plan. She has been to the ER six times this years since Sep 23 for pain. CM contacted with regards to establishing an ER plan of care. -EKG/tele sinus tachy. Trop neg. CXR neg. 2. Microcytic chronic Anemia with iron deficiency - LH when standing. Check Orthos. Transfuse if indicated. Severe iron deficiency. Will start venofer. 3. T1 DM - will adjust insulin therapies as needed. 4. Fibromyalgia, RA - complicating pain control with #1. DVT ppx: SCDs DC planning: optimize anemia and pain control. Close pain management follow up. This patient was seen by Felix Edgar PA-C under the supervision of Dr. Meza. <Mari Meza - Last Filed: 12/12/19 15:40> Vitals/I&O's: Vital Signs Temp Pulse Resp BP Pulse Ox 98.3 F 113 H 16 127/78 H 100 12/12/19 12:46 12/12/19 12:46 12/12/19 12:46 12/12/19 12:46 12/12/19 12:46 Oxygen Flow Rate (L/min) 3 Oxygen Delivery Method Room Air Weight: 113 lb 15.664 oz Body Mass Index (BMI) 18.9 Finger Stick Blood Glucose 306 Orthostatic Vital Signs Start: 12/12/19 12:43 Freq: q24h Status: Active Protocol: Activity Type Activity Date Activity User E-Sign Co-Sign Detail Recorded Client Recorded Date Recorded By Document 12/12/19 12:43 MLB [id number] 12/12/19 12:46 MLB 12/12/19 12:43 Orthostatic Vitals Standing -Blood Pressure (90/60-120/80) 127/78 H -Extremity Use Right Arm -Pulse Rate (60-100) 113 H Sitting -Blood Pressure (90/60-120/80) 112/45 L -Extremity Use Right Arm -Pulse Rate (60-100) 106 H Lying -Blood Pressure (90/60-120/80) 108/73 -Extremity Use Right Arm -Pulse Rate (60-100) 98 Intake and Output for Last 24 Hours 12/10/19 12/11/19 12/12/19 23:59 23:59 23:59 Intake Total 1110 / 1310 3053.33 / 3053.33 Balance 1110 / 1310 3053.33 / 3053.33 Laboratory Results 12/11/19 14:20: PT 12.8, INR 1.0 12/11/19 14:48: Urine Color Jocelin, Urine Clarity Cloudy, Urine pH 6.0, Ur Specific [place] 1.015, Urine Protein 30 H, Urine Glucose (UA) 1000 H, Urine Ketones 5 H, Urine Occult Blood 250 H, Urine Nitrite Negative, Urine Bilirubin Negative, Urine Urobilinogen Normal, Ur Leukocyte Esterase 100 H, Urine RBC 50- 100 SEEN, Urine WBC 0-5 SEEN, Ur Squamous Epith Cells 0-5 SEEN, Urine Bacteria RARE, Urine Mucus 0 SEEN 12/11/19 17:53: POC Glucose 179 H 12/11/19 22:08: POC Glucose 262 H 12/12/19 08:00: POC Glucose 241 H 12/12/19 08:10: WBC 12.6 H, RBC 3.38 L, Hgb 7.8 L, Hct 25.4 L, MCV 75.1 L, MCH 23.1 L, MCHC 30.7 L, RDW Std Deviation 37.8, RDW Coeff of Shireen 14.1, Plt Count 327, MPV 10.9, Immature Gran % (Auto) 0.400, Neut % (Auto) 69.5, Lymph % (Auto) 22.3, [place] % (Auto) 6.7, Eos % (Auto) 0.6, Baso % (Auto) 0.5, Absolute Neuts (auto) 8.8 H, Absolute Lymphs (auto) 2.82, Nucleated RBC % 0 12/12/19 08:10: Sodium 136, Potassium 3.8, Chloride 110 H, Carbon Dioxide 21.0, Anion Gap 5, BUN 6 L, Creatinine 0.78, Estim Creat Clear Calc 78.25, Est GFR (MDRD) Af Amer 105, Est GFR (MDRD) Non-Af 87, BUN/Creatinine Ratio 7.7 L, Glucose 264 H, Calcium 8.2 L, Total Bilirubin 0.20, AST 20, ALT 11 L, Alkaline Phosphatase 121 H, Total Protein 6.2 L, Albumin 2.4 L, Globulin 3.8, Albumin/Globulin Ratio 0.6 L 12/12/19 08:10: Iron 23 L, TIBC 305, Iron Saturation 7.5 L, Ferritin 4 L 12/12/19 11:00: POC Glucose 167 H Current Medications Acetaminophen (Tylenol) 650 mg PO Q6H PRN PRN PRN Reason: Pain Score 1-10/Temp > 100.7 F Aspirin (Aspirin, Baby) 81 mg PO DAILY@0800 [facility] Last Admin: 12/12/19 12:38 Dose: Not Given Documented by: Dextrose (D50w Syringe) 0 gm IV X1 PRN; Protocol PRN Reason: Hypoglycemia Diphenhydramine HCl (Benadryl) 50 mg IV Q4H PRN PRN PRN Reason: Nausea, vomiting, itching Last Admin: 12/12/19 10:46 Dose: 50 mg Documented by: Folic Acid (Folic Acid) 1 mg PO DAILY@0800 [facility] Last Admin: 12/12/19 12:38 Dose: Not Given Documented by: Glucagon () 1 mg IM .X1 PRN PRN Reason: Hypoglycemia Hydromorphone HCl (Dilaudid Inj) 2 mg IV Q3H PRN PRN PRN Reason: Pain Score 6-10/10 Last Admin: 12/12/19 10:45 Dose: 2 mg Documented by: Hydroxyurea (Hydrea) 500 mg PO DAILY [facility] Last Admin: 12/12/19 12:38 Dose: Not Given Documented by: Potassium Chloride/Sodium Chloride () 1,000 mls @ 100 mls/hr IV .Q10H [facility] Last Infusion: 12/12/19 14:09 Dose: 100 mls/hr Documented by: Famotidine 20 mg/ Sodium (Chloride) 10 mls @ 300 mls/hr IV Q12 [facility] Last Infusion: 12/12/19 10:48 Dose: Infused Documented by: Iron Sucrose 200 mg/ Sodium (Chloride) 110 mls @ 220 mls/hr IV DAILY [facility] Stop: 12/14/19 10:29 Last Infusion: 12/12/19 14:09 Dose: Infused Documented by: Insulin Glargine (Lantus (Bkc)) 40 units SC BID [facility] Last Admin: 12/12/19 08:46 Dose: 40 units Documented by: Insulin Human Lispro (Humalog Kwikpen (Bk)) 0 unit SC ACHS [facility]; Protocol Last Admin: 12/12/19 12:38 Dose: Not Given Documented by: Insulin Human Lispro (Humalog Kwikpen ([facility])) 20 unit SC TIDCM [facility] Last Admin: 12/12/19 12:39 Dose: Not Given Documented by: Ondansetron HCl (Zofran) 4 mg IV Q4H PRN PRN PRN Reason: NAUSEA/VOMITING Last Admin: 12/12/19 10:46 Dose: 4 mg Documented by: Oxycodone HCl (Oxycontin) 10 mg PO BID [facility] Last Admin: 12/12/19 12:38 Dose: Not Given Documented by: Prednisone () 20 mg PO DAILY@0800 [facility] Last Admin: 12/12/19 12:38 Dose: Not Given Documented by: Pregabalin (Lyrica) 200 mg PO BID [facility] Last Admin: 12/12/19 12:38 Dose: Not Given Documented by: Promethazine HCl (Phenergan Tablet) 25 mg PO Q4H PRN PRN PRN Reason: NAUSEA Promethazine HCl (Phenergan) 25 mg IV Q4H PRN PRN PRN Reason: NAUSEA/VOMITING Last Admin: 12/12/19 10:46 Dose: 25 mg Documented by: Senna/Docusate Sodium (Senokot-S, Evelia-Colace) 2 tablet PO BID PRN PRN PRN Reason: Constipation Sodium Chloride () 10 - 40 ml IV UD PRN PRN Reason: SALINE FLUSH Last Admin: 12/12/19 12:50 Dose: 10 ml Documented by: Zolpidem Tartrate (Ambien (Generic)) 5 mg PO QHS PRN PRN PRN Reason: INSOMNIA STROKE Vital Signs/Narrative: Vital Signs Temp Pulse Pulse Pulse Pulse Resp BP 12/12/19 12:46 98.3 F 113 H 16 127/78 H 12/12/19 12:43 98 106 H 113 H 12/12/19 11:00 114 H BP BP BP Pulse Ox 12/12/19 12:46 100 12/12/19 12:43 108/73 112/45 L 127/78 H 12/12/19 11:00 Assessment/Plan Patient seen by Felix Edgar PA-C under my supervision Patient was admitted with a complaint of generalized body pains, aches, nausea and vomiting. She has been managed for sickle cell crisis. Seen and examined this morning. Still complains of nausea and states the pain is very severe. Patient states that her nausea has only been controlled by both Phenergan and Zofran together with Benadryl in the past and wanted the same regimen while she was in the hospital. She also says that her pain is now well controlled even though she is on Dilaudid. She denies any shortness of breath, chest pain, vomiting or burning with urination. She thinks she may have genital yeast infection. Review of signs otherwise negative. o/e: Vital Signs Temp Pulse Resp BP Pulse Ox 98.3 F 113 H 16 127/78 H 100 12/12/19 12:46 12/12/19 12:46 12/12/19 12:46 12/12/19 12:46 12/12/19 12:46 General: Alert, Oriented x3, Cooperative HEENT: Atraumatic, PERRLA, EOMI, Normocephalic Neck: Supple, No JVD, Negative Carotid Bruits Lungs: Clear to auscultation, Normal air movement Cardiovascular: Regular rate, No murmurs Abdomen: Bowel Sounds Present, Soft, Non Tender Extremities: No edema, Capillary Refill Less than 3 Seconds Skin: No rashes, No breakdown Musculoskeletal: No Tenderness to Palpation of Joints or Extremities Neurological: Cranial nerves II-XII grossly intact Psych/Mental Status: Normal Affect, Appropriate, Alert and oriented to time, place, person, mood and affect Plan is continue hydration with IV fluids. Continue IV Dilaudid for pain and give Zofran and Phenergan IV together with Benadryl for nausea as patient states this is the only thing that works for her. PT OT on board. Hemoglobin is 7.8. From records her baseline is around 10. We will hold off on transfusion for now in light of her being sickle cell. To transfuse only if hemoglobin falls to less than 7. Iron panel done showed iron level of 23 with iron saturation of 7.5 and ferritin of only 4. TIBC is 305, indicating iron deficiency anemia. We will give IV Venofer. There is a concern that patient may be pain seeking as medical team spoke with her pain management doctor and per OARRS checks, patient has not been getting her oral Dilaudid that she says she has been getting. Patient will need to follow-up closely with her pain management doctor upon discharge. Continue IV Dilaudid for pain. Give Diflucan for vulvar candidiasis. Rest as per Felix Edgar PA-C's note, which I have reviewed and endorsed. Inpatient E&M: 00081 Subs Hosp L3
[2019-12-12 11:36] LABS: Bedside Glucose 167 mg/dL (70-110)
--- NOTE | 2019-12-12 13:32 | CASEMGMT ---
RN CM Assessment Note Presentation: sickle cell anemia Intro role of CM and purpose of RN CM assessment to patient in room. Pt is awake, alert and able to participate. Demographics, PCP and Pharmacy verified.Pt states she is independent, no care needs. Able to drive, follow with physicians and denies any difficulty getting prescriptions filled. PCP: Dr. Durbin- pain physician. States she doesn't see other physician currently. Preferred Pharmacy: [facility] Insurance: [employer] Prescription Benefit: yes LNOK : Mother, Tyra [place] Living Arrangements: Lives independently, states no care needs. Transportation: Drives DME: none HHC: none Patient DC goals: Home on discharge DC PLAN: Home. Collin SANTOS RN ACM
[2019-12-12 16:30] LABS: Bedside Glucose 104 mg/dL (70-110)
[2019-12-12] MEDS: Pregabalin 50 MG Capsule 200 MG PO (21:50)
[2019-12-12] MEDS: oxyCODONE HCl Cr 10 MG Tablet PO (21:50)
[2019-12-12] MEDS: Acetaminophen 325 MG Tablet 650 MG PO (21:53)
[2019-12-12 22:20] LABS: Bedside Glucose 199 mg/dL (70-110)
[2019-12-13] MEDS: HYDROmorphone 1 MG/ML Syringe 2 MG IV (03:36)
[2019-12-13] MEDS: Ondansetron 4 MG/2 ML Vial IV ×4 (03:36→22:09)
[2019-12-13] MEDS: proMETHazine 25 MG/ML Syringe IV ×4 (03:36→22:09)
[2019-12-13] MEDS: DiphenhydrAMINE 50 MG/ML Syringe IV (03:36)
[2019-12-13] MEDS: 0.9% Saline Lock 10 ML Syringe IV ×7 (03:37→22:28)
[2019-12-13 03:46] VITALS: BP 126/83; PULSE 103; RESP 16; TEMP 36.7; O2SAT 100
[2019-12-13 06:58] VITALS: BP 111/77; BP 118/65; BP 124/80; PULSE 103; PULSE 111; PULSE 99
[2019-12-13 08:11] LABS: Bedside Glucose 161 mg/dL (70-110)
[2019-12-13 09:25] VITALS: O2SAT 98
[2019-12-13 09:46] VITALS: BP 148/85; PULSE 98; RESP 16; TEMP 36.8; O2SAT 98
[2019-12-13 09:47] LABS: Absolute Lymphocyte Count 1.41 X10^3/uL (0.83-4.51); Absolute Neutrophil Count 9.3 X10^3/uL (2.0-7.7); Basophil# 0.05 X10^3/uL; Basophil% 0.4 % (0-1); Eosinophil# 0.06 X10^3/uL; Eosinophils% 0.5 % (0-5); Hematocrit 25.3 % (37-47); Hemoglobin 7.6 g/dL (12.0-15.0); Lymphocyte # 1.41 X10^3/ul (4.0); Lymphocyte % 12.3 % (19-41); Mean Corpuscular Volume 76.7 fL (81-99); Mean Platelet Vol. 10.4 fl (6.2-12.0); Monocyte# 0.65 X10^3/uL; Monocyte% 5.7 % (0-10); NRBC Flagged by Analyzer 0 % (0-5); Neutrophil # 9.26 X10^3/uL (2.7-7.7); Neutrophil % 80.6 % (47-70); Platelet Count 320 K/mm3 (150-450); RBC Distribution Width CV 14.2 % (11.6-14.6); RBC Distribution Width SD 39.3 fl (35.1-43.9); White Blood Count 11.5 K/mm3 (4.4-11.0)
[2019-12-13 10:20] LABS: ALB/GLOB Ratio 0.6 RATIO (0.9-2.4); AST(SGOT) 21 U/L (15-37); Alanine Aminotransfer ALT/SGPT 11 U/L (13-56); Albumin, Serum 2.5 g/dL (3.2-5.0); Alkaline Phosphatase 115 U/L (45-117); Anion Gap 7 (5-15); BUN 5 mg/dL (7-18); BUN/Creat Ratio 7.5 RATIO (10-20); Calcium,Total 8.6 mg/dL (8.5-10.1); Chloride 110 mmol/L (98-107); Creatinine, Serum 0.67 mg/dL (0.55-1.02); EST Glomerular Filtration Rate 104 mL/min (>60); Est Glom Filt Rate - Afr Amer 126 mL/min (>60); Glucose 157 mg/dL (74-106); Potassium 3.8 mmol/L (3.5-5.1); Protein, Total 6.5 g/dL (6.4-8.2); Sodium Level 139 mmol/L (136-145); Total Bilirubin < 0.10 mg/dL (0.20-1.00)
[2019-12-13] MEDS: DiphenhydrAMINE 50 MG/ML Syringe 25 MG IV ×3 (10:28→22:09)
[2019-12-13 10:41] LABS: Platelet Count 314 K/mm3 (150-450); Reticulocyte Count 1.32 % (0.5-1.5)
--- NOTE | 2019-12-13 10:43 | NURSING ---
pt states she is notifying her family per self with updates.
--- NOTE | 2019-12-13 11:36 | PN_ITS ---
<Felix Edgar - Last Filed: 12/13/19 11:36> Reason for Visit: uncontrolled pain and nausea Subjective: Pt understands that we are discontinuing narcots for pain control. She continues to have active nausea vomting and itching with antiemetics. No diarrhea. No fever/chills. SOB. She has diffuse pain all over nonlocalized. Vitals/I&O's: Vital Signs Temp Pulse Resp BP Pulse Ox 98.3 F 98 16 148/85 H 98 12/13/19 09:46 12/13/19 09:46 12/13/19 09:46 12/13/19 09:46 12/13/19 09:46 Oxygen Flow Rate (L/min) 3 Oxygen Delivery Method Room Air Weight: 113 lb 15.664 oz Body Mass Index (BMI) 18.9 Finger Stick Blood Glucose 306 Orthostatic Vital Signs Start: 12/12/19 12:43 Freq: q24h Status: Active Protocol: Activity Type Activity Date Activity User E-Sign Co-Sign Detail Recorded Client Recorded Date Recorded By Document 12/13/19 06:58 KK [id number] 12/13/19 07:00 KK 12/13/19 06:58 Orthostatic Vitals Standing -Blood Pressure (90/60-120/80) 124/80 H -Extremity Use Right Arm -Pulse Rate (60-100) 111 H Sitting -Blood Pressure (90/60-120/80) 118/65 -Extremity Use Right Arm -Pulse Rate (60-100) 103 H Lying -Blood Pressure (90/60-120/80) 111/77 -Extremity Use Right Arm -Pulse Rate (60-100) 99 Intake and Output for Last 24 Hours 12/11/19 12/12/19 12/13/19 23:59 23:59 23:59 Intake Total 1110 / 1310 4201.66 / 4201.66 1480 / 1480 Balance 1110 / 1310 4201.66 / 4201.66 1480 / 1480 General: Alert, Oriented x3, Cooperative HEENT: Atraumatic, PERRLA, EOMI, Normocephalic Neck: Supple, No JVD, Negative Carotid Bruits Lungs: Clear to auscultation, Normal air movement Cardiovascular: Regular rate, No murmurs Abdomen: Bowel Sounds Present, Soft, Non Tender Extremities: No edema, Capillary Refill Less than 3 Seconds Skin: No rashes, No breakdown Musculoskeletal: No Tenderness to Palpation of Joints or Extremities Neurological: Cranial nerves II-XII grossly intact Psych/Mental Status: Anxious, Alert and oriented to time, place, person, mood and affect Laboratory Results 12/12/19 11:00: POC Glucose 167 H 12/12/19 16:23: POC Glucose 104 12/12/19 21:59: POC Glucose 199 H 12/13/19 08:06: POC Glucose 161 H 12/13/19 09:34: Retic Count 1.32, Immature Retic Fraction 20.60 H, Retic Hgb Equivalent 26.0 L 12/13/19 09:35: WBC 11.5 H, RBC 3.30 L, Hgb 7.6 L, Hct 25.3 L, MCV 76.7 L, MCH 23.0 L, MCHC 30.0 L, RDW Std Deviation 39.3, RDW Coeff of Shireen 14.2, Plt Count 320, MPV 10.4, Immature Gran % (Auto) 0.500, Neut % (Auto) 80.6 H, Lymph % (Auto) 12.3 L, [place] % (Auto) 5.7, Eos % (Auto) 0.5, Baso % (Auto) 0.4, Absolute Neuts (auto) 9.3 H, Absolute Lymphs (auto) 1.41, Nucleated RBC % 0 12/13/19 09:35: Sodium 139, Potassium 3.8, Chloride 110 H, Carbon Dioxide 22.0, Anion Gap 7, BUN 5 L, Creatinine 0.67, Estim Creat Clear Calc 91.10, Est GFR (MDRD) Af Amer 126, Est GFR (MDRD) Non-Af 104, BUN/Creatinine Ratio 7.5 L, Glucose 157 H, Calcium 8.6, Total Bilirubin < 0.10 L, AST 21, ALT 11 L, Alkaline Phosphatase 115, Total Protein 6.5, Albumin 2.5 L, Globulin 4.0, Albumin/Globulin Ratio 0.6 L Current Medications Acetaminophen (Tylenol) 650 mg PO Q6H PRN PRN PRN Reason: Pain Score 1-10/Temp > 100.7 F Last Admin: 12/12/19 21:53 Dose: 650 mg Documented by: Aspirin (Aspirin, Baby) 81 mg PO DAILY@0800 [facility] Last Admin: 12/12/19 12:38 Dose: Not Given Documented by: Dextrose (D50w Syringe) 0 gm IV X1 PRN; Protocol PRN Reason: Hypoglycemia Diphenhydramine HCl (Benadryl) 25 mg IV Q4H PRN PRN PRN Reason: nausea vomiting Last Admin: 12/13/19 10:28 Dose: 25 mg Documented by: Folic Acid (Folic Acid) 1 mg PO DAILY@0800 [facility] Last Admin: 12/12/19 12:38 Dose: Not Given Documented by: Glucagon () 1 mg IM .X1 PRN PRN Reason: Hypoglycemia Hydroxyurea (Hydrea) 500 mg PO DAILY [facility] Last Admin: 12/12/19 12:38 Dose: Not Given Documented by: Potassium Chloride/Sodium Chloride () 1,000 mls @ 100 mls/hr IV .Q10H [facility] Last Admin: 12/13/19 01:30 Dose: 100 mls/hr Documented by: Famotidine 20 mg/ Sodium (Chloride) 10 mls @ 300 mls/hr IV Q12 [facility] Last Infusion: 12/12/19 21:53 Dose: Infused Documented by: Iron Sucrose 200 mg/ Sodium (Chloride) 110 mls @ 220 mls/hr IV DAILY [facility] Stop: 12/14/19 10:29 Last Infusion: 12/12/19 14:09 Dose: Infused Documented by: Insulin Glargine (Lantus (Bkc)) 40 units SC BID [facility] Last Admin: 12/13/19 10:33 Dose: 40 units Documented by: Insulin Human Lispro (Humalog Kwikpen (Bkc)) 0 unit SC ACHS [facility]; Protocol Last Admin: 12/13/19 08:34 Dose: Not Given Documented by: Insulin Human Lispro (Humalog Kwikpen (Bkc)) 20 unit SC TIDCM [facility] Last Admin: 12/13/19 08:34 Dose: Not Given Documented by: Ondansetron HCl (Zofran) 4 mg IV Q4H PRN PRN PRN Reason: NAUSEA/VOMITING Last Admin: 12/13/19 08:29 Dose: 4 mg Documented by: Oxycodone HCl (Oxycontin) 10 mg PO BID [facility] Last Admin: 12/12/19 21:50 Dose: 10 mg Documented by: Prednisone () 20 mg PO DAILY@0800 [facility] Last Admin: 12/12/19 12:38 Dose: Not Given Documented by: Pregabalin (Lyrica) 200 mg PO BID [facility] Last Admin: 12/12/19 21:50 Dose: 200 mg Documented by: Promethazine HCl (Phenergan Tablet) 25 mg PO Q4H PRN PRN PRN Reason: NAUSEA Promethazine HCl (Phenergan) 25 mg IV Q4H PRN PRN PRN Reason: NAUSEA/VOMITING Last Admin: 12/13/19 10:29 Dose: 25 mg Documented by: Senna/Docusate Sodium (Senokot-S, Evelia-Colace) 2 tablet PO BID PRN PRN PRN Reason: Constipation Sodium Chloride () 10 - 40 ml IV UD PRN PRN Reason: SALINE FLUSH Last Admin: 12/13/19 10:30 Dose: 10 ml Documented by: STROKE Vital Signs/Narrative: Vital Signs Temp Pulse Resp BP Pulse Ox 12/13/19 09:46 98.3 F 98 16 148/85 H 98 12/13/19 09:25 98 Medical Necessity - Tobacco Use Smoking Status: Never smoker Assessment/Plan 1. Generalized pain, possible sickle cell - sickle cell crisis unlikely. pt has an extensive hx of documented narcotic abuse. 6x visits to this ER for pain since september. CM/SW referral for ER care plan. narcotic pain control discontinued. pt has been discharged from pain management. I offered her detox services yesterday and she refused, stating she had a months worth of pain meds at home already that she would take. Still significantly nauseous - may worsen with opiate withdrawal. Continue aggressive anti emetics. 2. Microcytic chronic Anemia with iron deficiency - LH when standing. Check Orthos. Transfuse if indicated. Severe iron deficiency. Continue venofer. 3. T1 DM - will adjust insulin therapies as needed. 4. Fibromyalgia, RA - complicating pain control with #1. DVT ppx: SCDs DC planning: optimize anemia and nausea control. This patient was seen by Felix Edgar PA-C under the supervision of Dr. Shah <Jacob Shah - Last Filed: 12/13/19 14:31> Subjective: Still with nausea and vomiting. States that she gets relief with the Phenergan as well as Zofran, however both medications make her itch. Patient states that she cannot tolerate Compazine or Reglan due to reaction she receives with those medications. States that she aches in her legs. States she has sickle cell disease but has never seen a science manager before. States that Dr. Abreu was managing her sickle cell disease. Dr. Abreu is a primary care physician. Vitals/I&O's: Vital Signs Temp Pulse Resp BP Pulse Ox 36.8 C 98 16 148/85 H 98 12/13/19 09:46 12/13/19 09:46 12/13/19 09:46 12/13/19 09:46 12/13/19 09:46 Oxygen Flow Rate (L/min) 3 Oxygen Delivery Method Room Air Weight: 51.7 kg Body Mass Index (BMI) 18.9 Finger Stick Blood Glucose 306 Orthostatic Vital Signs Start: 12/12/19 12:43 Freq: q24h Status: Active Protocol: Activity Type Activity Date Activity User E-Sign Co-Sign Detail Recorded Client Recorded Date Recorded By Document 12/13/19 06:58 [id number] 12/13/19 07:00 EZIO 12/13/19 06:58 Orthostatic Vitals Standing -Blood Pressure (90/60-120/80) 124/80 H -Extremity Use Right Arm -Pulse Rate (60-100) 111 H Sitting -Blood Pressure (90/60-120/80) 118/65 -Extremity Use Right Arm -Pulse Rate (60-100) 103 H Lying -Blood Pressure (90/60-120/80) 111/77 -Extremity Use Right Arm -Pulse Rate (60-100) 99 Intake and Output for Last 24 Hours 12/11/19 12/12/19 12/13/19 23:59 23:59 23:59 Intake Total 1110 / 1310 4201.66 / 4201.66 2600 / 2600 Balance 1110 / 1310 4201.66 / 4201.66 2600 / 2600 General: Alert, - - Uncomfortable. Patient has a moistened towel on her forehead and a emesis bag full of liquid at her side. HEENT: Atraumatic, Normocephalic Neck: No Nodes, Trachea Midline Lungs: Clear to auscultation, Normal air movement, No rhonchi, No wheeze Cardiovascular: Regular rate, Regular Rhythm, Normal S1, Normal S2, No murmurs Abdomen: Bowel Sounds Present, Soft, Non Tender, Non-Distended Extremities: No edema, No Calf Tenderness Skin: No rashes, No breakdown Psych/Mental Status: Anxious Laboratory Results 12/12/19 16:23: POC Glucose 104 12/12/19 21:59: POC Glucose 199 H 12/13/19 08:06: POC Glucose 161 H 12/13/19 09:34: Retic Count 1.32, Immature Retic Fraction 20.60 H, Retic Hgb Equivalent 26.0 L 12/13/19 09:35: WBC 11.5 H, RBC 3.30 L, Hgb 7.6 L, Hct 25.3 L, MCV 76.7 L, MCH 23.0 L, MCHC 30.0 L, RDW Std Deviation 39.3, RDW Coeff of Shireen 14.2, Plt Count 320, MPV 10.4, Immature Gran % (Auto) 0.500, Neut % (Auto) 80.6 H, Lymph % (Auto) 12.3 L, [place] % (Auto) 5.7, Eos % (Auto) 0.5, Baso % (Auto) 0.4, Absolute Neuts (auto) 9.3 H, Absolute Lymphs (auto) 1.41, Nucleated RBC % 0 12/13/19 09:35: Sodium 139, Potassium 3.8, Chloride 110 H, Carbon Dioxide 22.0, Anion Gap 7, BUN 5 L, Creatinine 0.67, Estim Creat Clear Calc 91.10, Est GFR (MDRD) Af Amer 126, Est GFR (MDRD) Non-Af 104, BUN/Creatinine Ratio 7.5 L, Glucose 157 H, Calcium 8.6, Total Bilirubin < 0.10 L, AST 21, ALT 11 L, Alkaline Phosphatase 115, Total Protein 6.5, Albumin 2.5 L, Globulin 4.0, Albumin/Globulin Ratio 0.6 L 12/13/19 11:35: POC Glucose 116 H Current Medications Acetaminophen (Tylenol) 650 mg PO Q6H PRN PRN PRN Reason: Pain Score 1-10/Temp > 100.7 F Last Admin: 12/12/19 21:53 Dose: 650 mg Documented by: Aspirin (Aspirin, Baby) 81 mg PO DAILY@0800 [facility] Last Admin: 12/13/19 11:42 Dose: Not Given Documented by: Dextrose (D50w Syringe) 0 gm IV X1 PRN; Protocol PRN Reason: Hypoglycemia Diphenhydramine HCl (Benadryl) 25 mg IV Q4H PRN PRN PRN Reason: nausea vomiting Last Admin: 12/13/19 10:28 Dose: 25 mg Documented by: Folic Acid (Folic Acid) 1 mg PO DAILY@0800 [facility] Last Admin: 12/13/19 11:42 Dose: Not Given Documented by: Glucagon () 1 mg IM .X1 PRN PRN Reason: Hypoglycemia Hydroxyurea (Hydrea) 500 mg PO DAILY [facility] Last Admin: 12/13/19 11:42 Dose: Not Given Documented by: Potassium Chloride/Sodium Chloride () 1,000 mls @ 100 mls/hr IV .Q10H [facility] Last Admin: 12/13/19 12:37 Dose: 100 mls/hr Documented by: Famotidine 20 mg/ Sodium (Chloride) 10 mls @ 300 mls/hr IV Q12 [facility] Last Infusion: 12/13/19 12:49 Dose: Infused Documented by: Iron Sucrose 200 mg/ Sodium (Chloride) 110 mls @ 220 mls/hr IV DAILY [facility] Stop: 12/14/19 10:29 Last Infusion: 12/13/19 12:20 Dose: Infused Documented by: Insulin Glargine (Lantus (Bkc)) 40 units SC BID [facility] Last Admin: 12/13/19 10:33 Dose: 40 units Documented by: Insulin Human Lispro (Humalog Kwikpen (Bkc)) 0 unit SC ACHS [facility]; Protocol Last Admin: 12/13/19 11:41 Dose: Not Given Documented by: Insulin Human Lispro (Humalog Kwikpen (Bkc)) 20 unit SC TIDCM [facility] Last Admin: 12/13/19 11:42 Dose: Not Given Documented by: Ondansetron HCl (Zofran) 4 mg IV Q4H PRN PRN PRN Reason: NAUSEA/VOMITING Last Admin: 12/13/19 08:29 Dose: 4 mg Documented by: Oxycodone HCl (Oxycontin) 10 mg PO BID [facility] Last Admin: 12/13/19 11:41 Dose: Not Given Documented by: Prednisone () 20 mg PO DAILY@0800 [facility] Last Admin: 12/13/19 11:42 Dose: Not Given Documented by: Pregabalin (Lyrica) 200 mg PO BID [facility] Last Admin: 12/13/19 11:42 Dose: Not Given Documented by: Promethazine HCl (Phenergan Tablet) 25 mg PO Q4H PRN PRN PRN Reason: NAUSEA Promethazine HCl (Phenergan) 25 mg IV Q4H PRN PRN PRN Reason: NAUSEA/VOMITING Last Admin: 12/13/19 10:29 Dose: 25 mg Documented by: Senna/Docusate Sodium (Senokot-S, Evelia-Colace) 2 tablet PO BID PRN PRN PRN Reason: Constipation Sodium Chloride () 10 - 40 ml IV UD PRN PRN Reason: SALINE FLUSH Last Admin: 12/13/19 11:43 Dose: 20 ml Documented by: Assessment/Plan Patient seen and examined independently. Data reviewed. I agree with the above note by the physician assistant import manager. 1. Intractable nausea and vomiting: Ongoing. Concern is for gastroparesis and I have discontinued the narcotics some concern that these may be causing the patient have some component of gastroparesis. Patient was made aware of these changes. We will continue with the Phenergan and Zofran as patient has reported allergies and intolerance to metoclopramide as well as Compazine. Patient states that she has pruritus with and will continue with the diphenhydramine. 2. Chronic pain: Review of the patient's [place] reveal that she has been receiving oxycodone through Dr. López. This patient I have an unfortunate history is she has previously forged prescriptions that were written by me in either 2009 or 2010. Patient did have a case admitted to the court of common please in [facility] under . At that time, patient had forged prescriptions that were written by me for narcotics. Patient pled guilty to these accounts. Patient claims that she did not forged and that someone else did so. I told her I cannot verify that but she did plead guilty to actually doing the forging. I told her I would not let that influence my management of her pain medication but I do feel that narcotic pain medication would actually be of detriment to her in regards to her intractable nausea vomiting but also these headaches that she is complaining of as well.-That we will work with nonnarcotics to help her in regards to alleviating her symptoms. Unfortunately, I am concerned that the patient is malingering is she had pain issues when I take care of her back in 2009 or 2010 (am unsure as to what year that actually was but is around that time) and all also few years later I had seen patient in [facility] where the patient was having pain issues and I did confront her about her forging prescriptions at that time. Patient claims to live in [place] as well as [place] which is profoundly odd dice suspect suspicious. Patient previously had been recently residing in [place] which I think she still lives exclusively. Apparently patient is asking for medications to be sent to the pharmacy up in here in the [place] area. Patient at some point would permit it, I think that she would benefit seeking addiction treatment where this seems to be more along the lines of addiction rather than true pain. 3. Iron deficiency anemia: On iron sucrose. Patient claims that she has sickle cell disease, though I find that claim probably inaccurate and if anything she may have trait not the disease. Patient is never seen a science manager before which I would find to be very unusual for someone as actual sickle cell disease. Patient is complaining of myalgias that she claims are related with sickle cell crisis but her reticulocyte count was 1.3%. Unclear of the anemia but whether she has sickle cell trait versus just heavy periods versus some chronic thalassemia. Advise outpatient hematology evaluation. Unfortunately, I suspect the patient may be malingering in regards to receiving pain medications. Greater than 60 minutes of which greater than 50% of time was counseling the patient and discussing her treatment options addressing the pain issues that she has not has had before and discussing also the legal case that she had sustained by forging prescriptions that I had written in the past. Inpatient E&M: 38161 Subs Hosp L3
[2019-12-13 11:45] LABS: Bedside Glucose 116 mg/dL (70-110)
[2019-12-13] MEDS: Famotidine 200 MG/20 ML MDV 20 MG in 0.9% Normal Saline (Pres. free 8 ML 300 MG IV ×2 (12:37→22:28)
[2019-12-13 14:41] VITALS: BP 144/81; PULSE 111; RESP 18; TEMP 37.1; O2SAT 94
[2019-12-13] MEDS: oxyCODONE HCl Cr 10 MG Tablet PO (17:11)
[2019-12-13] MEDS: Acetaminophen 325 MG Tablet 650 MG PO (17:11)
[2019-12-13] MEDS: Hydroxyurea 500 MG Capsule PO (17:12)
[2019-12-13 17:30] LABS: Bedside Glucose 79 mg/dL (70-110)
[2019-12-13 22:07] VITALS: BP 140/74; PULSE 101; RESP 18; TEMP 37.5; O2SAT 99
[2019-12-13 23:35] LABS: Bedside Glucose 78 mg/dL (70-110)
[2019-12-14] MEDS: proMETHazine 25 MG/ML Syringe IV ×3 (03:44→13:12)
[2019-12-14] MEDS: 0.9% Saline Lock 10 ML Syringe IV ×6 (03:44→14:44)
[2019-12-14] MEDS: Ondansetron 4 MG/2 ML Vial IV ×3 (03:44→13:12)
[2019-12-14] MEDS: DiphenhydrAMINE 50 MG/ML Syringe 25 MG IV ×3 (03:44→13:12)
[2019-12-14 03:59] VITALS: BP 146/71; PULSE 110; RESP 18; TEMP 37.7; O2SAT 99
[2019-12-14 06:46] LABS: Absolute Lymphocyte Count 1.75 X10^3/uL (0.83-4.51); Absolute Neutrophil Count 6.6 X10^3/uL (2.0-7.7); Basophil# 0.04 X10^3/uL; Basophil% 0.4 % (0-1); Eosinophil# 0.02 X10^3/uL; Eosinophils% 0.2 % (0-5); Hematocrit 26.6 % (37-47); Hemoglobin 8.1 g/dL (12.0-15.0); Lymphocyte # 1.75 X10^3/ul (4.0); Lymphocyte % 19.2 % (19-41); Mean Corp Hgb Conc 30.5 g/dL (32-36); Mean Corpuscular Hgb 23.5 pg (27.0-32.0); Mean Corpuscular Volume 77.1 fL (81-99); Mean Platelet Vol. 10.6 fl (6.2-12.0); Monocyte# 0.67 X10^3/uL; Monocyte% 7.3 % (0-10); NRBC Flagged by Analyzer 0 % (0-5); Neutrophil # 6.59 X10^3/uL (2.7-7.7); Neutrophil % 72.4 % (47-70); Platelet Count 361 K/mm3 (150-450); RBC Distribution Width CV 14.3 % (11.6-14.6); RBC Distribution Width SD 39.2 fl (35.1-43.9); Red Blood Count 3.45 M/mm3 (4.2-5.4); White Blood Count 9.1 K/mm3 (4.4-11.0)
[2019-12-14 08:50] VITALS: BP 114/68; PULSE 96; RESP 16; TEMP 37; O2SAT 99
[2019-12-14] MEDS: Famotidine 200 MG/20 ML MDV 20 MG in 0.9% Normal Saline (Pres. free 8 ML 300 MG IV (09:19)
[2019-12-14 09:31] LABS: Bedside Glucose 164 mg/dL (70-110)
[2019-12-14 10:29] VITALS: O2SAT 99
--- NOTE | 2019-12-14 11:11 | PCM.DC ---
You will use the following diet at home:: Calorie/Carbohydrate Controlled (specify 1200, 1400, etc) - 1800 Discharge Activity: Return to Normal Activity Call your doctor if you observe: - - intractable nausea and vomiting Allergies/Adverse Reactions: Allergies ketorolac [From Toradol] Allergy (Verified 12/11/19 13:50) Hives metoclopramide [From Reglan] Allergy (Verified 12/11/19 13:50) Hives morphine Allergy (Verified 12/11/19 13:50) Hives prochlorperazine [From Compazine] Allergy (Verified 12/11/19 13:50) Hives Medications to take at Discharge DiphenhydrAMINE [Benadryl] 50 mg PO Q4H 09/23/19 Aspirin 81 mg PO DAILY 10/11/19 Folic Acid 1 mg PO DAILY 10/11/19 Hydroxyurea 500 mg PO DAILY 10/11/19 Insulin Aspart [Novolog Flexpen] 20 units SUBCUT TIDCM 10/11/19 Prednisone 20 mg PO DAILY 10/11/19 Pregabalin [Lyrica] 200 mg PO BID 10/11/19 Insulin Glargine,Hum.rec.anlog [Lantus Solostar] 40 unit SQ BID 12/11/19 Ondansetron [Zofran] 8 mg PO Q8H PRN #15 tab 12/14/19 proMETHazine tablet [Phenergan tablet] 25 mg PO Q6H PRN #12 tab 12/14/19 The following prescriptions were given: proMETHazine tablet [Phenergan tablet] 25 mg PO Q6H PRN #12 tab PRN Reason: nausea and vomiting Transmission Status: Pending to [address] Ondansetron [Zofran] 8 mg PO Q8H PRN #15 tab PRN Reason: Nausea Transmission Status: Sent to [address] Test Results: Test results from this visit will be discussed in further detail at your follow-up appointment, if applicable. Please Follow Up With: Sherman Abreu DO When: 1-2 weeks Please Follow Up With: Hematology When: 1-2 months. [facility] [phone]. [facility] [phone]. Proposed Discharge Date: 12/14/19
--- NOTE | 2019-12-14 11:16 | PCM.DC.SUM ---
Discharge Date and Diagnosis Date of Admission: 12/11/19 Date of Discharge: 12/14/19 - Primary Discharge Diagnosis Intractable nausea and vomiting. - Secondary Discharge Diagnosis Chronic Problems Sickle cell anemia (Chronic) Type 1 diabetes mellitus (Chronic) Fibromyalgia (Chronic) Rheumatoid arthritis (Chronic) Lupus (Chronic) Anemia (Chronic) Hospital Course and Treatment Imaging Results: Clinical Impression(s) from Imaging Studies Chest X-Ray 12/11/19 14:00 IMPRESSION: No acute abnormality is seen. Electronically Signed: Bhavesh Feliciano, at 14:48 EDT , Service support , Operations: None Procedures: None Summary of Care Provided: The patient is a 39 year old F presents with intractable nausea and vomiting. [] 1. Intractable nausea and vomiting: Improving. Likely gastroparesis from diabetes, but cannot rule out if from narcotics. I have discontinued the narcotics some concern that these may be causing the patient have some component of gastroparesis. Patient was made aware of these changes. We will continue with the Phenergan and Zofran as patient has reported allergies and intolerance to metoclopramide as well as Compazine. Patient states that she has pruritus with and will continue with the diphenhydramine. Follow up with GI as outpt. 2. Chronic pain: Review of the patient's OARRS reveal that she has been receiving oxycodone through Dr. López. This patient I have an unfortunate history is she has previously forged prescriptions that were written by me in either 2009 or 2010. Patient did have a case admitted to the court of common please in [facility] under . At that time, patient had forged prescriptions that were written by me for narcotics. Patient pled guilty to these accounts. Patient claims that she did not forge them and that someone else did so. I told her I cannot verify that but she did plead guilty to actually doing the forging. I told her I would not let that influence my management of her pain medication but I do feel that narcotic pain medication would actually be of detriment to her in regards to her intractable nausea vomiting but also these headaches that she is complaining of as well.-That we will work with nonnarcotics to help her in regards to alleviating her symptoms. Unfortunately, I am concerned that the patient is malingering is she had pain issues when I take care of her back in 2009 or 2010 (am unsure as to what year that actually was but is around that time) and all also few years later I had seen patient in [facility] where the patient was having pain issues and I did confront her about her forging prescriptions at that time. Patient claims to live in [place] as well as [place] which is profoundly odd dice suspect suspicious. Patient previously had been recently residing in [place] which I think she still lives exclusively. Apparently patient is asking for medications to be sent to the pharmacy up in here in the [place] area. Patient at some point would permit it, I think that she would benefit seeking addiction treatment where this seems to be more along the lines of addiction rather than true pain. 3. Iron deficiency anemia: Patient claims to have sickle cell anemia, however in my review of the patient's records, patient was seen at [facility] and the emergency room doctor spoke with someone who stated the patient did not have sickle cell disease. I dressed this with the patient and she says she has sickle cell but also alpha thalassemia. Still continues to say that she has never seen visitor services technician. Strongly advised patient follow-up with hematology as outpatient Patient had a normal reticulocyte count here and also previously which then goes against with sickle cell crisis which patient is been claiming. I did address that patient has been seen in many numerous myriad of hospitals within the past year and also expressed that she has drug problems in regards to narcotics and she is actually gotten into legal trouble with that. Patient still continues to claim that someone else altered the prescriptions that I had written. Told her that what ever happened and still got her in trouble and that my concern is also the narcotics may be making her possible gastroparesis worse. I would recommend just complete discontinuation of all narcotics. Patient states that she only takes it when she needs it but I cannot validate that at all but concern is patient is doing some drug-seeking behaviors and that is going to hospitals within [facility], where she lives to seek out additional narcotics. I would not prescribe this patient any narcotics unless there is a legitimate reason to do so. - Physical Exam Vitals/I&O's: Vital Signs Temp Pulse Resp BP Pulse Ox 37.7 C H 110 H 18 146/71 H 99 12/14/19 03:59 12/14/19 03:59 12/14/19 03:59 12/14/19 03:59 12/14/19 10:29 Oxygen Flow Rate (L/min) 3 Oxygen Delivery Method Room Air Weight: 51.7 kg Body Mass Index (BMI) 18.9 Finger Stick Blood Glucose 306 Intake and Output for Last 24 Hours 12/12/19 12/13/19 12/14/19 23:59 23:59 23:59 Intake Total 4201.66 / 4201.66 3561.67 / 3611.67 1706.67 / 1706.67 Output Total 300 / 300 350 / 350 Balance 4201.66 / 4201.66 3261.67 / 3311.67 1356.67 / 1356.67 General: Alert, No apparent distress HEENT: Atraumatic, Normocephalic Oral: Moist Mucosa, No Gingival or Mucosal Lesions/ Ulcerations Neck: No Nodes, Trachea Midline Lungs: Clear to auscultation, Normal air movement, No rhonchi, No wheeze Cardiovascular: Regular rate, Regular Rhythm, Normal S1, Normal S2 Abdomen: Bowel Sounds Present, Soft, Non-Distended, No Hepato-splenomegaly, Tender - RUQ Laboratory Results 12/13/19 11:35: POC Glucose 116 H 12/13/19 17:02: POC Glucose 79 12/13/19 22:20: POC Glucose 78 12/14/19 06:15: WBC 9.1, RBC 3.45 L, Hgb 8.1 L, Hct 26.6 L, MCV 77.1 L, MCH 23.5 L, MCHC 30.5 L, RDW Std Deviation 39.2, RDW Coeff of Shireen 14.3, Plt Count 361, MPV 10.6, Immature Gran % (Auto) 0.500, Neut % (Auto) 72.4 H, Lymph % (Auto) 19.2, [place] % (Auto) 7.3, Eos % (Auto) 0.2, Baso % (Auto) 0.4, Absolute Neuts (auto) 6.6, Absolute Lymphs (auto) 1.75, Nucleated RBC % 0 12/14/19 09:10: POC Glucose 164 H Current Medications Acetaminophen (Tylenol) 650 mg PO Q6H PRN PRN PRN Reason: Pain Score 1-10/Temp > 100.7 F Last Admin: 12/13/19 17:11 Dose: 650 mg Documented by: Aspirin (Aspirin, Baby) 81 mg PO DAILY@0800 [facility] Last Admin: 12/13/19 11:42 Dose: Not Given Documented by: Dextrose (D50w Syringe) 0 gm IV X1 PRN; Protocol PRN Reason: Hypoglycemia Diphenhydramine HCl (Benadryl) 25 mg IV Q4H PRN PRN PRN Reason: nausea vomiting Last Admin: 12/14/19 08:58 Dose: 25 mg Documented by: Folic Acid (Folic Acid) 1 mg PO DAILY@0800 [facility] Last Admin: 12/13/19 11:42 Dose: Not Given Documented by: Glucagon () 1 mg IM .X1 PRN PRN Reason: Hypoglycemia Hydroxyurea (Hydrea) 500 mg PO DAILY [facility] Last Admin: 12/13/19 17:12 Dose: 500 mg Documented by: Potassium Chloride/Sodium Chloride () 1,000 mls @ 100 mls/hr IV .Q10H [facility] Last Admin: 12/14/19 07:36 Dose: 100 mls/hr Documented by: Famotidine 20 mg/ Sodium (Chloride) 10 mls @ 300 mls/hr IV Q12 [facility] Last Infusion: 12/14/19 09:21 Dose: Infused Documented by: Insulin Glargine (Lantus (Bkc)) 40 units SC BID [facility] Last Admin: 12/13/19 22:20 Dose: Not Given Documented by: Insulin Human Lispro (Humalog Kwikpen (Bkc)) 0 unit SC ACHS [facility]; Protocol Last Admin: 12/14/19 11:00 Dose: Not Given Documented by: Insulin Human Lispro (Humalog Kwikpen (Bkc)) 20 unit SC TIDCM [facility] Last Admin: 12/14/19 11:00 Dose: Not Given Documented by: Ondansetron HCl (Zofran) 4 mg IV Q4H PRN PRN PRN Reason: NAUSEA/VOMITING Last Admin: 12/14/19 08:58 Dose: 4 mg Documented by: Prednisone () 20 mg PO DAILY@0800 [facility] Last Admin: 12/13/19 11:42 Dose: Not Given Documented by: Pregabalin (Lyrica) 200 mg PO BID [facility] Last Admin: 12/13/19 22:21 Dose: Not Given Documented by: Promethazine HCl (Phenergan Tablet) 25 mg PO Q4H PRN PRN PRN Reason: NAUSEA Promethazine HCl (Phenergan) 25 mg IV Q4H PRN PRN PRN Reason: NAUSEA/VOMITING Last Admin: 12/14/19 08:58 Dose: 25 mg Documented by: Senna/Docusate Sodium (Senokot-S, Evelia-Colace) 2 tablet PO BID PRN PRN PRN Reason: Constipation Sodium Chloride () 10 - 40 ml IV UD PRN PRN Reason: SALINE FLUSH Last Admin: 12/14/19 09:19 Dose: 10 ml Documented by: Discharge Diet: 1800 Calorie Control Diet Discharge Activity: Return to Normal Activity Call your doctor if you observe: - - intractable nausea and vomiting Home Medications: Medications to take at Discharge DiphenhydrAMINE [Benadryl] 50 mg PO Q4H 09/23/19 Aspirin 81 mg PO DAILY 10/11/19 Folic Acid 1 mg PO DAILY 10/11/19 Hydroxyurea 500 mg PO DAILY 10/11/19 Insulin Aspart [Novolog Flexpen] 20 units SUBCUT TIDCM 10/11/19 Prednisone 20 mg PO DAILY 10/11/19 Pregabalin [Lyrica] 200 mg PO BID 10/11/19 Insulin Glargine,Hum.rec.anlog [Lantus Solostar] 40 unit SQ BID 12/11/19 Ondansetron [Zofran] 8 mg PO Q8H PRN #15 tab 12/14/19 proMETHazine tablet [Phenergan tablet] 25 mg PO Q6H PRN #12 tab 12/14/19 Following Prescrptions Were Given to Patient: proMETHazine tablet [Phenergan tablet] 25 mg PO Q6H PRN #12 tab PRN Reason: nausea and vomiting Transmission Status: Pending to [facility] [place] [id number] Ondansetron [Zofran] 8 mg PO Q8H PRN #15 tab PRN Reason: Nausea [facility] Primary Care Physician: Esequiel López [Primary Care Provider] - Please Follow Up With: Bonyo,Whitaker, DO When: 1-2 weeks Please Follow Up With: Hematology When: 1-2 months. [place] [facility] [phone]. [facility] [phone]. Disposition: Home Minutes spent on discharge:: 40 Patient Condition:: Fair Medical Necessity - Tobacco Use Smoking Status: Never smoker Meaningful Use Info Meaningful Use Diagnoses (Choose all that apply): None applicable Inpatient E&M: 55860 Disch Hosp
[2019-12-14] MEDS: Insulin Lispro 100 UNIT/ML INSULN.PEN SC (11:41)
[2019-12-14] MEDS: Insulin Lispro 100 UNIT/ML INSULN.PEN 20 UNIT SC (11:42)
[2019-12-14 12:01] LABS: Bedside Glucose 316 mg/dL (70-110)
[2019-12-14 14:40] VITALS: BP 118/90; PULSE 98; RESP 16; TEMP 36.7; O2SAT 100
--- NOTE | 2019-12-15 16:55 | CASEMGMT ---
RN DEBO Discharge Follow-up Phone Call: MARIO: 15 Strata: 4 Call Date:12/15/19 Discharge Date: 12/14/19 Time of Call: 1655 Duration: 3 min Admitting Diagnosis: intractable n/v RN DEBO completed follow-up phone call after recent hospitalization. Patient states she is doing better, no questions or concerns regarding discharge instructions. Patient has no pickup PRN nausea medication yet, CM notified they are at [facility]. Patient aware to schedule follow-up appts. No further questions at this time.
== END 2019-12-14 14:55 | disposition home or self-care (01) | DRG 48 ==
LOC: ED 14:42 → PCU 16:10
PROVIDERS: Physician Assistant; Student in an Organized Health Care Education/Training Program; Admitting Provider Hospitalist; Emergency Provider Emergency Medicine; PCP Physical Medicine & Rehabilitation
DX: E10.43 Type 1 diabetes mellitus with diabetic autonomic (poly)neuropathy (principal); G89.29 Other chronic pain; M79.7 Fibromyalgia; M06.9 Rheumatoid arthritis, unspecified; M32.9 Systemic lupus erythematosus, unspecified; D50.9 Iron deficiency anemia, unspecified; E87.6 Hypokalemia; Z87.891 Personal history of nicotine dependence; B37.3 Candidiasis of vulva and vagina; Z76.5 Malingerer [conscious simulation]
CPT/HCPCS: 36591; 71045; 80053; 81001; 82728; 82962; 83540; 83550; 84484; 85025; 85045; 85610; 93005; 96365; 96375; 96376; 99251; 99285; J1756; J7030; A4216; G0463; J2405; J3490

== ENCOUNTER 2020-07-31 20:20 | Emergency (ER) | payer MEDICAID, SELFPAY ==
[2019-12-11 16:52] VITALS: BMI 18.9
[2020-07-31 20:21] VITALS: BP 120/73; PULSE 116; RESP 18; TEMP 36.4; O2SAT 99; BMI 18.3
--- NOTE | 2020-07-31 20:26 | EKG12_ITS ---
Test Reason : CP Blood Pressure : / mmHG Vent. Rate : 115 BPM Atrial Rate : 115 BPM P-R Int : 122 ms QRS Dur : 080 ms QT Int : 340 ms P-R-T Axes : 069 002 049 degrees QTc Int : 470 ms Sinus tachycardia Septal infarct , age undetermined Abnormal ECG Confirmed by NAVIN NAVARRO, KIMBERLY ([id number]), school photograph editor EASTON HYATT ([id number]) on 08/02/2020 2:07:39 PM Referred By: AR Confirmed By:KIMBERLY HOLDEN MD
--- NOTE | 2020-07-31 20:51 | ED.DCSUM_ITS ---
History of Present Illness Chief Complaint: Chest Pain Informant: Patient Narrative: 39-year-old female with history of sickle cell disease, fibromyalgia, rheumatoid arthritis presenting with weakness and chest pain. She states this is been going on for 3 days. Patient thinks she is having a sickle cell flareup currently. She states she is not had a fever or cough. She does describe myalgias however she gets these with sickle cell rubs. She also complains of nausea/vomiting with diffuse crampy abdominal pain. Past Medical History - Allergies and Home Meds Allergies/Adverse Reactions: Allergies ketorolac [From Toradol] Allergy (Verified 12/11/19 13:50) Hives metoclopramide [From Reglan] Allergy (Verified 12/11/19 13:50) Hives morphine Allergy (Verified 12/11/19 13:50) Hives prochlorperazine [From Compazine] Allergy (Verified 12/11/19 13:50) Hives Primary Care Physician: Yaquelin Buck,Out of [Primary Care Provider] - Prior records reviewed: Yes Past Medical History: - - Sickle cell disease, pancreatitis, rheumatoid arthritis, diabetes, fibromyalgia Surgical History: - - medport, lung surgery for nodules Smoking Status: Never smoker - Family History Maternal Family History: Reports: No pertinent history Paternal Family History: Reports: No pertinent history Review of Systems General: Reports: Chills, Malaise. Denies: Fever Eyes: Denies: Visual changes - bilaterally, Diplopia ENT: Reports: - - No change in taste or smell. Denies: Rhinorrhea, Sore throat Cardiovascular: Reports: Chest pain. Denies: Palpitations, Heart racing Respiratory: Denies: Dyspnea, Cough Gastrointestinal: Reports: Abdominal pain, Nausea, Vomiting Genitourinary: Denies: Dysuria, Hematuria Musculoskeletal: Reports: Myalgias. Denies: Arthralgias Skin: Denies: Rash, Abscess Neurological: Reports: Headache. Denies: Parasthesia, Numbness Physical Exam Vital Signs/Narrative: Vital Signs Temp Pulse Resp BP Pulse Ox 07/31/20 20:21 97.6 F L 116 H 18 120/73 99 Inital Vital Signs reviewed: Yes General: Well nourished, No Acute Distress Head: Normocephalic, Atraumatic Eyes: Perrl, EOMI. Negative for: Scleral icterus ENT: Moist mucous membranes Cardiovascular: Regular rhythm, Tachycardia Abdomen: Soft, Nondistended, Tender - Diffuse generalized pain with abdomen nonperitoneal. Extremities: Negative for: No edema, Calf Tenderness Skin: Normal color, No rash Neurological: Alert, Oriented x3 Psychological: Normal affect, Normal Mood Diagnostic/Tx/Re-eval Clinical Impression(s) from Imaging Studies Chest X-Ray 07/31/20 21:55 IMPRESSION: Right middle lobe atelectasis versus early/mild infiltrate. at 2239 Reported and signed by: Georgina Espana MD Electronically Signed: Georgina Espana MD at 22:39 EST Tel , Service support , Laboratory Data 07/31/20 07/31/20 07/31/20 20:55 20:55 20:55 WBC 9.8 RBC 4.31 Hgb 10.3 L Hct 32.8 L MCV 76.1 L MCH 23.9 L MCHC 31.4 L RDW Std Deviation 37.9 RDW Coeff of Shireen 13.8 Plt Count 290 MPV 11.4 Immature Gran % (Auto) 0.400 Neut % (Auto) 68.0 Lymph % (Auto) 24.4 George % (Auto) 6.1 Eos % (Auto) 0.4 Baso % (Auto) 0.7 Absolute Neuts (auto) 6.7 Absolute Lymphs (auto) 2.40 Nucleated RBC % 0 Retic Count Immature Retic Fraction Retic Hgb Equivalent D-Dimer Quant (PE/DVT) < 0.27 L Sodium 135 L Potassium 3.7 Chloride 104 Carbon Dioxide 25.0 Anion Gap 6 BUN 9 Creatinine 1.13 H Estim Creat Clear Calc 52.41 Est GFR (MDRD) Af Amer 68 Est GFR (MDRD) Non-Af 56 L BUN/Creatinine Ratio 8.0 L Glucose 619 H* Calcium 8.6 Total Bilirubin Direct Bilirubin AST ALT Alkaline Phosphatase Troponin I < 0.015 Total Protein Albumin Globulin Lipase POC Glucose 07/31/20 07/31/20 07/31/20 20:55 20:55 23:46 WBC RBC Hgb Hct MCV MCH MCHC RDW Std Deviation RDW Coeff of Shireen Plt Count MPV Immature Gran % (Auto) Neut % (Auto) Lymph % (Auto) George % (Auto) Eos % (Auto) Baso % (Auto) Absolute Neuts (auto) Absolute Lymphs (auto) Nucleated RBC % Retic Count 0.81 Immature Retic Fraction 8.00 Retic Hgb Equivalent 29.5 L D-Dimer Quant (PE/DVT) Sodium Potassium Chloride Carbon Dioxide Anion Gap BUN Creatinine Estim Creat Clear Calc Est GFR (MDRD) Af Amer Est GFR (MDRD) Non-Af BUN/Creatinine Ratio Glucose Calcium Total Bilirubin 0.30 Direct Bilirubin 0.10 AST 5 L ALT 11 L Alkaline Phosphatase 164 H Troponin I Total Protein 6.8 Albumin 2.8 L Globulin 4.0 Lipase 56 L POC Glucose 323 H - Rhythm Strip Rhythm Strip: Sinus Rhythm Rate: 115 - EKG Initial EKG Interpretation: No Acute Injury Pattern, Sinus Tachycardia - Medical Decision Making 39-year-old female presenting with body aches and chest pain. She thinks he is having sickle cell flare. She was put on O2 and given 2 L of IV fluids. She was given a dose of Dilaudid, Phenergan, Benadryl because he states he has itching with the Phenergan. Reevaluation she is still having pain and she was given Zofran and Dilaudid as well as Benadryl. Lab work shows a negative troponin. Negative D-dimer. Given that her chest pain is been going on for 3 days and she has a negative troponin and normal EKG I do not believe she needs to have a delta troponin. Reticulocyte count is normal. Hemoglobin is stable. EKG interpreted by myself is sinus rhythm at 115 bpm on arrival. Chest x-ray shows right middle lobe infiltrate as read by myself and the radiologist. Given this I will test her for Covid?19. We will send her home with a prescription for antibiotics given that her lab work is not entirely consistent with a viral syndrome. She will be tested for Covid?19 with a rapid antigen so that we can determine if she qualifies for monoclonal antibodies. After reevaluating her she does state that her pain is improving. Her blood sugar is down to 323 after given 15 units of insulin lispro. She will be given 10 more units. She was given a third dose of Dilaudid with Phenergan and Benadryl. Patient's Covid swab was negative. She will be treated with azithromycin at home for her right middle lobe infiltrate. Her blood sugar will be rechecked. Impression: 1. Chest pain 2. Hyperglycemia 3. Abdominal pain 4. Right middle lobe infiltrate ED Disposition - Plan for ED Patient: Disposition: Home or Assisted Living Prescriptions: Azithromycin 250 mg PO DAILY #4 tab Transmission Status: Received by [facility] [facility] Referrals: [facility] Doctor,Out of [Primary Care Provider] -
[2020-07-31] MEDS: Ondansetron 4 MG/2 ML Vial IV (21:14)
[2020-07-31] MEDS: HYDROmorphone 1 MG/ML Syringe IV ×2 (21:15→22:55)
[2020-07-31] MEDS: DiphenhydrAMINE 50 MG/ML Syringe 25 MG IV ×2 (21:15→22:55)
[2020-07-31 21:16] LABS: Absolute Neutrophil Count 6.7 X10^3/uL (2.0-7.7); Basophil# 0.07 X10^3/uL; Basophil% 0.7 % (0-1); Eosinophil# 0.04 X10^3/uL; Eosinophils% 0.4 % (0-5); Hematocrit 32.8 % (37-47); Hemoglobin 10.3 g/dL (12.0-15.0); Lymphocyte % 24.4 % (19-41); Mean Corp Hgb Conc 31.4 g/dL (32-36); Mean Corpuscular Hgb 23.9 pg (27.0-32.0); Mean Corpuscular Volume 76.1 fL (81-99); Mean Platelet Vol. 11.4 fl (6.2-12.0); Monocyte% 6.1 % (0-10); NRBC Flagged by Analyzer 0 % (0-5); Neutrophil # 6.69 X10^3/uL (2.7-7.7); Platelet Count 290 K/mm3 (150-450); RBC Distribution Width CV 13.8 % (11.6-14.6); RBC Distribution Width SD 37.9 fl (35.1-43.9); Red Blood Count 4.31 M/mm3 (4.2-5.4); White Blood Count 9.8 K/mm3 (4.4-11.0)
[2020-07-31 21:21] VITALS: PULSE 110; RESP 18; O2SAT 96; O2SAT 98
[2020-07-31] MEDS: 0.9% Normal Saline 1,000 ML 999 ML IV ×2 (21:21→23:00)
[2020-07-31 21:31] LABS: D-Dimer Quantitative (DVT/PE) < 0.27 FEU/ug/m (0.27-0.49)
[2020-07-31 21:39] LABS: Anion Gap 6 (5-15); BUN 9 mg/dL (7-18); Calcium,Total 8.6 mg/dL (8.5-10.1); Chloride 104 mmol/L (98-107); Creatinine, Serum 1.13 mg/dL (0.55-1.02); EST Glomerular Filtration Rate 56 mL/min (>60); Est Glom Filt Rate - Afr Amer 68 mL/min (>60); Estimated Creatinine Clearance 52.41 ml/min; Glucose 619 mg/dL (74-106); Potassium 3.7 mmol/L (3.5-5.1); Sodium Level 135 mmol/L (136-145)
--- NOTE | 2020-07-31 21:55 | RAD_ITS ---
HISTORY: CHEST PAIN, N/V, SICKLE CELL CRISIS ADDITIONAL HISTORY: None provided. COMPARISON: 12/11/2019 EXAMINATION/TECHNIQUE: XR Chest 2 Views Number of images including paperwork: 3 FINDINGS: LUNGS AND PLEURA: No dense consolidation. Streaky right middle lobe opacity. CARDIAC SILHOUETTE: Unremarkable. MEDIASTINUM AND OLIVIA: Unremarkable. UPPER ABDOMEN: Unremarkable. SKELETON AND SOFT TISSUES: No acute findings. OTHER DEVICES AND HARDWARE: Unchanged right chest port. RAD/Chest PA and Lateral IMPRESSION: Right middle lobe atelectasis versus early/mild infiltrate. at 2239 Reported and signed by: Georgina Espana MD Electronically Signed: Georgina Espana MD at 22:39 EST Tel , Service support ,
[2020-07-31 22:01] LABS: AST(SGOT) 5 U/L (15-37); Alanine Aminotransfer ALT/SGPT 11 U/L (13-56); Albumin, Serum 2.8 g/dL (3.2-5.0); Alkaline Phosphatase 164 U/L (45-117); Lipase 56 U/L (73-393); Protein, Total 6.8 g/dL (6.4-8.2)
[2020-07-31] MEDS: Insulin Lispro 100 UNIT/ML INSULN.PEN 15 UNIT SC (22:42)
[2020-07-31] MEDS: proMETHazine 25 MG/ML Syringe 12.5 MG IV (22:54)
[2020-07-31 23:00] VITALS: PULSE 114; RESP 18; O2SAT 96
[2020-07-31 23:27] LABS: Platelet Count 289 K/mm3 (150-450); RET-HE 29.5 pg (30-35); Reticulocyte Count 0.81 % (0.5-1.5)
[2020-07-31 23:50] LABS: Bedside Glucose 323 mg/dL (70-110)
[2020-08-01] MEDS: proMETHazine 25 MG/ML Syringe 12.5 MG IM (00:50)
[2020-08-01] MEDS: Ondansetron 4 MG/2 ML Vial IV (00:50)
[2020-08-01] MEDS: DiphenhydrAMINE 50 MG/ML Syringe 25 MG IV (00:51)
[2020-08-01] MEDS: HYDROmorphone 1 MG/ML Syringe IV (00:51)
[2020-08-01] MEDS: Insulin Lispro 100 UNIT/ML INSULN.PEN 10 UNIT SC (00:51)
[2020-08-01] MEDS: Azithromycin 250 MG Tablet 500 MG PO (00:58)
[2020-08-01 02:01] LABS: Bedside Glucose 175 mg/dL (70-110)
--- NOTE | 2020-08-01 02:20 | ED.DEP ---
ED Disposition - Plan for ED Patient: Disposition: Home or Assisted Living Instructions: ED Chest Pain, Noncardiac, ED Diabetic Hyperglycemia, ED Pneumonia (Adult) Prescriptions: Azithromycin 250 mg PO DAILY #4 tab Transmission Status: Received by [facility] [facility] proMETHazine suppository [Phenergan Suppository] 25 mg RECTAL Q6H PRN PRN #6 suppos. PRN Reason: Nausea Ondansetron [Zofran Odt] 4 mg PO Q8H PRN PRN #10 tablet PRN Reason: Nausea Referrals: [facility] Doctor,Out of [Primary Care Provider] -
== END 2020-08-01 03:30 | disposition home or self-care (01) ==
PROVIDERS: Emergency Provider Student in an Organized Health Care Education/Training Program
DX: R07.9 Chest pain, unspecified (principal); R73.9 Hyperglycemia, unspecified; R10.9 Unspecified abdominal pain; R91.8 Other nonspecific abnormal finding of lung field
CPT/HCPCS: 36591; 71046; 80048; 80076; 82962; 83690; 84484; 85025; 85045; 85379; 87426; 93005; 96361; 96372; 96374; 96375; 96376; 99285; J7030; A4216; J2405

== ENCOUNTER 2020-09-24 16:59 | Emergency (ER) | payer MEDICAID, SELFPAY ==
[2020-09-24 17:00] VITALS: BP 160/86; PULSE 109; RESP 16; TEMP 35.5; O2SAT 100; BMI 19.4
--- NOTE | 2020-09-24 17:25 | EKG12_ITS ---
Test Reason : CP Blood Pressure : / mmHG Vent. Rate : 102 BPM Atrial Rate : 102 BPM P-R Int : 112 ms QRS Dur : 078 ms QT Int : 342 ms P-R-T Axes : 061 -04 045 degrees QTc Int : 445 ms Sinus tachycardia Otherwise normal ECG Confirmed by WADE NAVARRO, CRISELDA ([id number]), supervising editor news reel ALONZO JC ([id number]) on 09/26/2020 9:47:17 AM Referred By: JAZMYNE Confirmed By:CRISELDA OLVERA MD
--- NOTE | 2020-09-24 17:40 | RAD_ITS ---
STUDY: X-RAY CHEST REASON FOR EXAM: Female, 39 years old. Weakness. Sickle cell disease. TECHNIQUE: Frontal view of the chest COMPARISON: 07/31/20 FINDINGS: Again noted is a right-sided port with its tip in the superior vena cava. There is stable linear scarring in the right mid lung. The lungs are clear. There are no pleural effusions. There is no pneumothorax. The heart is normal in size. The visualized osseous structures are within normal limits. RAD/Chest 1 View (Portable) IMPRESSION: No acute thoracic pathology. Electronically Signed: Antonino Vincent MD at 18:14 EST Tel , Service support ,
[2020-09-24 17:52] VITALS: O2SAT 99
[2020-09-24 18:00] LABS: Bacteria 0 SEEN /hpf (None Seen); Mucous, Urine 0 SEEN /hpf (<or=2+); Red Blood Cells-Urine 0 SEEN /hpf (0-5)
[2020-09-24 18:09] LABS: Color, Urine Yellow (Yellow); Glucose, Dipstick 1000 mg/dl (Normal); Ketone-Dipstick 15 mg/dl (Negative); Leukocyte Esterase-Dipstick 100 /ul (Negative); Nitrite-Dipstick Negative (Negative); Occult Blood-Urine 25 /ul (Negative); Protein-Dipstick 100 mg/dl (Negative); Urine Bilirubin Dipstick Negative (Negative); Urine Clarity Clear (Clear); Urine Urobilinogen Normal (Normal); Urine pH 6.5 (5.0 - 8.0)
[2020-09-24 18:10] LABS: Internal QC Validated? YES +Cl - CLEAR BKGD
[2020-09-24 18:11] LABS: Pregnancy, Urine Negative Negative
[2020-09-24 18:14] LABS: Squamous Epithelial Cells - UA 10-25 SEEN /hpf (5-10)
[2020-09-24 18:15] LABS: White Blood Cells 5-10 SEEN /hpf (0-5)
--- NOTE | 2020-09-24 18:21 | CM.ED ---
Addendum entered by Chapis Peres 09/24/20 18:51: Patient then later able to provide PCP name to registration and has been updated in patient chart. Original Note: Social Work Consult: ED Care Plan (Active) Informant: Self referral Met with patient in room. Introduced self and perinatal social worker role. This perinatal social worker educating patient on ED Care Plan and providing patient with ED Care Plan document and community resources. Patient reports to follow with pain management in the community but currently unable to remember patient doctors name. Patient also states to have a PCP but unsure of patient PCP name as well. Patient with multiple questions in regards to ED Care Plan, this perinatal social worker able to answer patient questions. Patient denies any mental health concerns or needs. Patient does report to have a medical marijuana card so I use that. Patient denies any other substance abuse/use. Medical team aware of ED Care Plan. Adalgisa YANCEY, JOSE
[2020-09-24 18:27] VITALS: BP 153/109; PULSE 96; RESP 19; O2SAT 97
[2020-09-24] MEDS: proMETHazine 25 MG/ML Syringe 12.5 MG IV (18:34)
[2020-09-24] MEDS: 0.9% Normal Saline 1,000 ML 1000 ML IV (18:34)
[2020-09-24] MEDS: DiphenhydrAMINE 50 MG/ML Syringe 25 MG IV (18:34)
[2020-09-24 18:39] LABS: Absolute Lymphocyte Count 2.21 X10^3/uL (0.83-4.51); Absolute Neutrophil Count 5.8 X10^3/uL (2.0-7.7); Basophil# 0.04 X10^3/uL; Basophil% 0.5 % (0-1); Eosinophil# 0.02 X10^3/uL; Eosinophils% 0.2 % (0-5); Hematocrit 31.1 % (37-47); Hemoglobin 9.6 g/dL (12.0-15.0); Lymphocyte # 2.21 X10^3/ul (4.0); Lymphocyte % 25.6 % (19-41); Mean Corp Hgb Conc 30.9 g/dL (32-36); Mean Corpuscular Hgb 23.1 pg (27.0-32.0); Mean Corpuscular Volume 74.9 fL (81-99); Mean Platelet Vol. 11.4 fl (6.2-12.0); Monocyte# 0.54 X10^3/uL; Monocyte% 6.3 % (0-10); NRBC Flagged by Analyzer 0 % (0-5); Neutrophil # 5.82 X10^3/uL (2.7-7.7); Neutrophil % 67.3 % (47-70); Platelet Count 400 K/mm3 (150-450); RBC Distribution Width CV 13.4 % (11.6-14.6); RBC Distribution Width SD 36.6 fl (35.1-43.9); RET-HE 25.5 pg (30-35); Red Blood Count 4.15 M/mm3 (4.2-5.4); Reticulocyte Count 1.01 % (0.5-1.5); White Blood Count 8.6 K/mm3 (4.4-11.0)
--- NOTE | 2020-09-24 18:50 | ED.VIS.GEN ---
History of Present Illness Chief Complaint: Nausea/Vomiting Informant: Patient Onset: Days - 3 Narrative: Patient has history of sickle cell anemia rheumatological disease on prednisone, type 1 diabetes presents 3-day history of nausea and vomiting. She reports chest pain. States vomiting bile no hematemesis. No diarrhea. She states her sugars are in the 400s. She has been in DKA in the past. She has Phenergan and Zofran at home she takes with Benadryl due to those causing itching. Denies abdominal pain. Denies cough. Denies urinary symptoms. She states she does follow hematology for her sickle cell who is currently part of [facility]. She cannot recall the name. She states she is having her sickle cell pain. Prior similar symptoms: Yes Past Medical History - Allergies and Home Meds Allergies/Adverse Reactions: Allergies ketorolac [From Toradol] Allergy (Verified 09/24/20 17:01) Hives metoclopramide [From Reglan] Allergy (Verified 09/24/20 17:01) Hives morphine Allergy (Verified 09/24/20 17:01) Hives prochlorperazine [From Compazine] Allergy (Verified 09/24/20 17:01) Hives Primary Care Physician: Care Physician,No Primary [Primary Care Provider] - Past Medical History: - - Rheumatoid arthritis, lupus, fibromyalgia, sickle cell anemia, type 1 diabetes Surgical History: - - [facility], lung surgery for nodules Smoking Status: Never smoker - Family History Maternal Family History: Reports: No pertinent history Paternal Family History: Reports: No pertinent history Review of Systems General: Denies: Chills, Fever, Sweats Eyes: Denies: Visual changes - bilaterally, Diplopia ENT: Denies: Rhinorrhea, Sore throat Cardiovascular: Reports: Chest pain. Denies: Palpitations Respiratory: Denies: Dyspnea, Cough, Dyspnea on exertion Gastrointestinal: Reports: Nausea, Vomiting. Denies: Abdominal pain, Diarrhea, Melena, Hematochezia Genitourinary: Denies: Dysuria, Hematuria, Frequency Musculoskeletal: Reports: Myalgias. Denies: Back pain, Extremity Pain Skin: Denies: Rash, Wounds Neurological: Denies: Headache, Weakness, Numbness Physical Exam Vital Signs/Narrative: Vital Signs Temp Pulse Resp BP Pulse Ox 09/24/20 18:27 96 19 H 153/109 H 97 09/24/20 17:52 99 09/24/20 17:00 95.9 F L 109 H 16 160/86 H 100 General: Well nourished, Well developed, No Acute Distress Head: Normocephalic, Atraumatic Eyes: Perrl, EOMI ENT: Moist mucous membranes, No rhinorrhea Neck: Supple, Nontender Cardiovascular: Regular rate, No murmurs, Tachycardia Respiratory: No distress, CTA bilaterally, Chest nontender Abdomen: Soft, Nontender, Nondistended, Normal bowel sounds Back: Nontender, Normal Inspection Extremities: Nontender, No edema Skin: Normal color, No rash Neurological: Alert, Oriented x3, Cranial nerves II-XII grossly intact, Normal Strength, Normal Sensation Psychological: Normal affect, Normal Mood Diagnostic/Tx/Re-eval Clinical Impression(s) from Imaging Studies Chest X-Ray 09/24/20 17:40 IMPRESSION: No acute thoracic pathology. Electronically Signed: Antonino Vincent MD at 18:14 EST Tel , Service support , Abnormal Lab Results 09/24/20 09/24/20 09/24/20 17:09 18:25 18:25 WBC 8.6 RBC 4.15 L Hgb 9.6 L Hct 31.1 L MCV 74.9 L MCH 23.1 L MCHC 30.9 L RDW Std Deviation 36.6 RDW Coeff of Shireen 13.4 Plt Count 400 MPV 11.4 Immature Gran % (Auto) 0.100 Neut % (Auto) 67.3 Lymph % (Auto) 25.6 Mcmullen % (Auto) 6.3 Eos % (Auto) 0.2 Baso % (Auto) 0.5 Absolute Neuts (auto) 5.8 Absolute Lymphs (auto) 2.21 Nucleated RBC % 0 Retic Count 1.01 Immature Retic Fraction 16.10 H Retic Hgb Equivalent 25.5 L D-Dimer Quant (PE/DVT) Urine Color Yellow Urine Clarity Clear Urine pH 6.5 Ur Specific [place] 1.010 Urine Protein 100 H Urine Glucose (UA) 1000 H Urine Ketones 15 H Urine Occult Blood 25 H Urine Nitrite Negative Urine Bilirubin Negative Urine Urobilinogen Normal Ur Leukocyte Esterase 100 H Urine RBC 0 SEEN Urine WBC 5-10 SEEN Ur Squamous Epith Cells 10-25 SEEN Urine Bacteria 0 SEEN Urine Mucus 0 SEEN Urine Test Negative Acetone Level NEGATIVE 09/24/20 18:25 WBC RBC Hgb Hct MCV MCH MCHC RDW Std Deviation RDW Coeff of Shireen Plt Count MPV Immature Gran % (Auto) Neut % (Auto) Lymph % (Auto) Mcmullen % (Auto) Eos % (Auto) Baso % (Auto) Absolute Neuts (auto) Absolute Lymphs (auto) Nucleated RBC % Retic Count Immature Retic Fraction Retic Hgb Equivalent D-Dimer Quant (PE/DVT) < 0.27 L Urine Color Urine Clarity Urine pH Ur Specific [place] Urine Protein Urine Glucose (UA) Urine Ketones Urine Occult Blood Urine Nitrite Urine Bilirubin Urine Urobilinogen Ur Leukocyte Esterase Urine RBC Urine WBC Ur Squamous Epith Cells Urine Bacteria Urine Mucus Urine Test Acetone Level - EKG Initial EKG Interpretation: Sinus Rhythm - Sinus rate of 102, no ST or T wave changes. - Medical Decision Making Patient slight tachycardic on evaluation multiple complaints including chest pain with nausea and vomiting. Cardiac work-up including DKA rule out along with sickle cell rule out initiated. Initial order for oxygen fluids multiple allergies she is order for Phenergan along with her Benadryl. Initial order for Dilaudid for pain control, however referred by nursing and social work that she does have a care plan initiated November 2019. Reports no opiates unless acute verifiable condition is noted. This for this help. Chest x-ray 1 view reviewed by myself shows no acute process. Labs are pending her hemoglobin was stable. D-dimer was negative. Prior to rest the results reported to nursing that her grandchild was taken to the emergency department therefore she had to leave. Patient did not want to wait for results before she signed out AMA. She understands her care plan. She will return for reevaluation if needed. All questions were answered. ED Disposition - Plan for ED Patient: Disposition: Against Medical Advice Diagnosis: Sickle cell anemia, Type 1 diabetes mellitus, Nausea and vomiting, Chest pain Instructions: ED Chest Pain, Uncertain Cause, ED Vomiting (Adult), ED Sickle Cell Pain Crisis Referrals: Care Physician,No Primary [Primary Care Provider] - Additional Instructions: You are signing out AGAINST MEDICAL ADVICE. Follow-up with your doctor. You are welcome to return for reevaluation.
[2020-09-24 18:51] LABS: D-Dimer Quantitative (DVT/PE) < 0.27 FEU/ug/m (0.27-0.49)
--- NOTE | 2020-09-24 18:55 | ED.RN ---
PT STATES HER GRANDSON HAS BEEN RUSHED TO [facility]IA [facility] AND IS ON THE OPERATING TABLE. STATES SHE HAS CUSTODY OF HIM AND NEEDS TO GO. ASKED HOW LONG AGO THIS HAPPENED AND SHE STATES IN THE LAST 30 MIN. PT SIGNED OUT AMA.
[2020-09-24 18:57] LABS: ALB/GLOB Ratio 0.7 RATIO (0.9-2.4); AST(SGOT) 9 U/L (15-37); Alanine Aminotransfer ALT/SGPT 13 U/L (13-56); Alkaline Phosphatase 139 U/L (45-117); Anion Gap 5 (5-15); BUN 8 mg/dL (7-18); BUN/Creat Ratio 10.1 RATIO (10-20); Chloride 103 mmol/L (98-107); EST Glomerular Filtration Rate 85 mL/min (>60); Est Glom Filt Rate - Afr Amer 102 mL/min (>60); Estimated Creatinine Clearance 78.32 ml/min; Globulin 4.1 g/dL (2.2-4.2); Glucose 397 mg/dL (74-106); Lipase 84 U/L (73-393); Potassium 3.6 mmol/L (3.5-5.1); Protein, Total 7.1 g/dL (6.4-8.2); Sodium Level 133 mmol/L (136-145)
== END 2020-09-24 18:58 | disposition left against medical advice (07) ==
PROVIDERS: Emergency Provider Emergency Medicine; PCP Family Medicine
DX: D57.1 Sickle-cell disease without crisis (principal); E10.9 Type 1 diabetes mellitus without complications; R11.2 Nausea with vomiting, unspecified; R07.9 Chest pain, unspecified; Z79.4 Long term (current) use of insulin
CPT/HCPCS: 36591; 71045; 80053; 81001; 81025; 82009; 83690; 85025; 85045; 85379; 93005; 96374; 96375; 99285; J7030; A4216

== ENCOUNTER 2021-07-07 21:05 | Emergency (ER) | payer MEDICAID, SELFPAY ==
[2021-07-07 21:05] VITALS: BP 175/111; PULSE 108; RESP 18; TEMP 36.6; O2SAT 99; BMI 21.2
--- NOTE | 2021-07-07 21:43 | ED.RN ---
warm blanket given. pt currently has 4 blankets on.
--- NOTE | 2021-07-07 22:03 | RAD_ITS ---
EXAM: XR CHEST, 1 VIEW : 1980 CLINICAL INDICATION: cp TECHNIQUE: Frontal view of the chest. This report was created using [employer] report generation technology. COMPARISON: 09/24/2020 FINDINGS: LUNGS AND PLEURAL SPACES: Unremarkable. No consolidation or edema. No pneumothorax. No effusion. HEART: Unremarkable. Cardiac silhouette not enlarged. MEDIASTINUM: Central airways and mediastinal contour are unremarkable. BONES/JOINTS: Unremarkable. SOFT TISSUES: Unremarkable. TUBES, LINES AND DEVICES: Right-sided Port-A-Cath is in stable position. RAD/Chest 1 View (Portable) IMPRESSION: No acute findings in the chest. at 0027 Reported and signed by: Dontrell Schmidt MD Electronically Signed: Dontrell Schmidt MD at 0:26 EST Tel , Service support ,
--- NOTE | 2021-07-07 22:04 | EKG12_ITS ---
Test Reason : CP Blood Pressure : / mmHG Vent. Rate : 107 BPM Atrial Rate : 107 BPM P-R Int : 132 ms QRS Dur : 078 ms QT Int : 356 ms P-R-T Axes : 045 -12 035 degrees QTc Int : 475 ms Sinus tachycardia Otherwise normal ECG Confirmed by WADE NAVARRO, CRISELDA ([id number]), scientific publications editor EASTON HYATT ([id number]) on 07/09/2021 10:00:07 AM Referred By: BRIGETTE Confirmed By:CRISELDA OLVERA MD
--- NOTE | 2021-07-07 22:40 | ED.RN ---
DR PEMBERTON AWARE OF CARE PLAN
[2021-07-07 22:50] LABS: Absolute Lymphocyte Count 2.54 X10^3/uL (0.83-4.51); Absolute Neutrophil Count 7.1 X10^3/uL (2.0-7.7); Basophil# 0.06 X10^3/uL; Basophil% 0.6 % (0-1); Eosinophil# 0.06 X10^3/uL; Eosinophils% 0.6 % (0-5); Hematocrit 30.4 % (37-47); Hemoglobin 9.6 g/dL (12.0-15.0); Lymphocyte # 2.54 X10^3/ul (0.83-4.51); Lymphocyte % 24.4 % (19-41); Mean Corp Hgb Conc 31.6 g/dL (32-36); Mean Corpuscular Hgb 25.3 pg (27.0-32.0); Mean Corpuscular Volume 80.2 fL (81-99); Mean Platelet Vol. 10.2 fl (6.2-12.0); Monocyte# 0.59 X10^3/uL; Monocyte% 5.7 % (0-10); NRBC Flagged by Analyzer 0 % (0-5); Neutrophil % 68.1 % (47-70); Platelet Count 333 K/mm3 (150-450); RBC Distribution Width CV 13.5 % (11.6-14.6); RBC Distribution Width SD 39.7 fl (35.1-43.9); RET-HE 29.6 pg (30-35); Red Blood Count 3.79 M/mm3 (4.2-5.4); Reticulocyte Count 1.35 % (0.5-1.5); White Blood Count 10.4 K/mm3 (4.4-11.0)
[2021-07-07 23:00] LABS: Internal QC Validated? YES +Cl - CLEAR BKGD; Pregnancy, Serum, hCG Quali. NEGATIVE Negative
[2021-07-07 23:06] LABS: D-Dimer Quantitative (DVT/PE) 0.51 FEU/ug/m (0.27-0.49)
[2021-07-07 23:08] VITALS: BP 163/96; PULSE 102; RESP 18
[2021-07-07 23:12] LABS: AST(SGOT) 14 U/L (15-37); Alanine Aminotransfer ALT/SGPT 10 U/L (13-56); Alkaline Phosphatase 102 U/L (45-117); Anion Gap 3 (5-15); BUN 9 mg/dL (7-18); BUN/Creat Ratio 14.2 RATIO (10-20); Bilirubin, Direct 0.08 mg/dL (0.00-0.30); Calcium,Total 8.1 mg/dL (8.5-10.1); Chloride 109 mmol/L (98-107); Creatinine, Serum 0.64 mg/dL (0.55-1.02); EST Glomerular Filtration Rate 109 mL/min (>60); Est Glom Filt Rate - Afr Amer 132 mL/min (>60); Estimated Creatinine Clearance 104.09 ml/min; Globulin 3.8 g/dL (2.2-4.2); Glucose 151 mg/dL (74-106); Lipase 37 U/L (73-393); Potassium 3.2 mmol/L (3.5-5.1); Protein, Total 5.8 g/dL (6.4-8.2); Sodium Level 139 mmol/L (136-145); Troponin-I HS 16 pg/mL (3.0-54.0)
--- NOTE | 2021-07-07 23:18 | EX.ED.DYSGE1 ---
HPI History of Present Illness Chief Complaint: Chest Pain Detail of Chief Complaint: Chest pain, congestion, concern for sickle cell crisis Informant: patient Onset/Context/Timing Onset: Yesterday Current Severity: Moderate Maximum Severity: Severe Narrative Narrative: Patient presents with 4-day history of vomiting. She states yesterday she developed chest pain and a low-grade fever. She reports mild cough and shortness of breath. She does report a history of sickle cell and is concerned she may be in a crisis. She states that she sees a aviation engineer at the [facility] here in [place] whose last name begins with a letter A. She is not able to tell me when she last saw him. It is noted that the patient has a care plan. [facility] Medical History Fibromyalgia Lupus Rheumatoid arthritis Sickle cell anemia Type 1 diabetes mellitus Home Medications diphenhydramine HCl 50 mg PO Q4H 09/23/19 [History Last Taken 3 Days Ago ~12/08/19] Hydroxyurea 500 mg PO DAILY 10/11/19 [History Last Taken 3 Days Ago ~12/08/19] aspirin 81 mg PO DAILY 10/11/19 [History Last Taken 3 Days Ago ~12/08/19] folic acid 1 mg PO DAILY 10/11/19 [History Last Taken 3 Days Ago ~12/08/19] insulin aspart U-100 20 units SUBCUT TIDCM 10/11/19 [History Last Taken 3 Days Ago ~12/08/19] prednisone 20 mg PO DAILY 10/11/19 [History Last Taken 3 Days Ago ~12/08/19] pregabalin 200 mg PO BID 10/11/19 [History Last Taken 3 Days Ago ~12/08/19] insulin glargine 40 unit SQ BID 12/11/19 [History Last Taken 12/11/19] ondansetron HCl 8 mg PO Q8H PRN #15 tab 12/14/19 [Rx Last Taken Unknown] promethazine 25 mg PO Q6H PRN #12 tab 12/14/19 [Rx Last Taken Unknown] azithromycin 250 mg PO DAILY #4 tab 08/01/20 [Rx Last Taken Unknown] ondansetron 4 mg PO Q8H PRN PRN #10 tab 08/01/20 [Rx Last Taken Unknown] promethazine 25 mg RECTAL Q6H PRN PRN #6 suppos. 08/01/20 [Rx Last Taken Unknown] Allergy/AdvReac Type Severity Reaction Status Date / Time ketorolac [From Toradol] Allergy Hives Verified 07/07/21 21:07 metoclopramide [From Reglan] Allergy Hives Verified 07/07/21 21:07 morphine Allergy Hives Verified 07/07/21 21:07 prochlorperazine Allergy Hives Verified 07/07/21 21:07 [From Compazine] Social History Smoking Status: Never smoker ROS ROS ED Constitutional Constitutional ED: Reports fever(s) Eyes Eyes: Denies blurry vision or change in vision ENT ENT ED: Reports other Details: Congestion Cardiovascular Cardiovascular: Reports chest pain; Denies palpitations Respiratory/Chest Respiratory/Chest: Reports cough and dyspnea Gastrointestinal Gastrointestinal: Reports nausea and vomiting; Denies diarrhea Genitourinary Genitourinary ED: Denies dysuria Musculoskeletal Musculoskeletal: Denies back pain or neck pain Integumentary Denies rash Neurologic Neurologic: Reports headache(s) Allergic/Immunologic Allergic/Immunologic ED: Denies urticaria EXAM Physical Exam Const Vital Signs: 07/07/21 21:05 07/07/21 23:08 07/08/21 02:17 Temperature 97.9 F Temperature Source Temporal Pulse Rate 108 H 102 H 106 H Respiratory Rate 18 18 16 Blood Pressure 175/111 H 163/96 H 155/92 H Blood Pressure Mean 132 118 113 Pulse Ox 99 100 Oxygen Delivery Method Room Air Room Air Positive well nourished and well developed General Appearance ED: well developed Eyes PERRL and EOMs intact bilaterally Neck supple Chest Wall inspection of chest normal and palpation of chest normal Resp normal respiratory effort and clear to auscultation bilaterally Cardio regular rate and regular rhythm GI non-tender Auscultation: hypoactive bowel sounds Palpation: soft; Negative for guarding Extremity normal to inspection Neuro oriented x3 Sensorium / Orientation: alert Psych mental status grossly normal Skin no rashes or lesions noted MDM MDM MDM Narrative Medical decision making narrative: When I initially saw the patient I told her I would give her a small dose of pain medication x1 dose until he had her test results back. I advised her I would not be repeating her opiates unless I had a verifiable cause of her pain. She did request Phenergan and Benadryl for nausea. Lab work, EKG, chest x-ray ordered. Lab Data Attestation: I reviewed the patient's lab results. Labs: Laboratory Results - last 24 hr 07/07/21 07/07/21 07/07/21 22:28 22:28 22:28 WBC 10.4 RBC 3.79 L Hgb 9.6 L Hct 30.4 L MCV 80.2 L MCH 25.3 L MCHC 31.6 L RDW Std Deviation 39.7 RDW Coeff of Shireen 13.5 Plt Count 333 MPV 10.2 Immature Gran % (Auto) 0.600 Neut % (Auto) 68.1 Lymph % (Auto) 24.4 Lipscomb % (Auto) 5.7 Eos % (Auto) 0.6 Baso % (Auto) 0.6 Absolute Neuts (auto) 7.1 Absolute Lymphs (auto) 2.54 Nucleated RBC % 0 Retic Count 1.35 Immature Retic Fraction 8.10 Retic Hgb Equivalent 29.6 L D-Dimer Quant (PE/DVT) 0.51 H* Sodium 139 Potassium 3.2 L Chloride 109 H Carbon Dioxide 27.0 Anion Gap 3 L BUN 9 Creatinine 0.64 Estim Creat Clear Calc 104.09 Est GFR (MDRD) Af Amer 132 Est GFR (MDRD) Non-Af 109 BUN/Creatinine Ratio 14.2 Glucose 151 H Calcium 8.1 L Total Bilirubin 0.30 Direct Bilirubin 0.08 AST 14 L ALT 10 L Alkaline Phosphatase 102 Troponin I High Sens 16 Total Protein 5.8 L Albumin 2.0 L Globulin 3.8 Lipase 37 L Serum , Qual 07/07/21 22:28 WBC RBC Hgb Hct MCV MCH MCHC RDW Std Deviation RDW Coeff of Shireen Plt Count MPV Immature Gran % (Auto) Neut % (Auto) Lymph % (Auto) Lipscomb % (Auto) Eos % (Auto) Baso % (Auto) Absolute Neuts (auto) Absolute Lymphs (auto) Nucleated RBC % Retic Count Immature Retic Fraction Retic Hgb Equivalent D-Dimer Quant (PE/DVT) Sodium Potassium Chloride Carbon Dioxide Anion Gap BUN Creatinine Estim Creat Clear Calc Est GFR (MDRD) Af Amer Est GFR (MDRD) Non-Af BUN/Creatinine Ratio Glucose Calcium Total Bilirubin Direct Bilirubin AST ALT Alkaline Phosphatase Troponin I High Sens Total Protein Albumin Globulin Lipase Serum , Qual NEGATIVE Radiography Chest X-Ray - ED: 1 View, Read by ED Physician, Normal, Heart, Lungs and Mediastinum Diagnostic Testing: Clinical Impression(s) from Imaging Studies Chest X-Ray 07/07/21 22:03 IMPRESSION: No acute findings in the chest. at 0027 Reported and signed by: Dontrell Schmidt MD Electronically Signed: Dontrell Schmidt MD at 0:26 EST Tel , Service support , EKG Initial EKG: Attestation: I personally reviewed and interpreted this EKG as follows: Interpretation: Sinus Tachycardia (Sinus tach at 107. No acute ischemia.) Treatment and Re-Evaluation Comments:: I was notified by nursing staff that the patient initially refused the current pain medications and nausea medications I ordered. She was requesting 1 mg of Dilaudid, 50 mg of Benadryl, and 25 mg of Phenergan. I advised nursing staff that I gave her appropriate dosing based on her size. She could take what I had ordered or could refuse altogether. After significant delay she did take the initial medication ordered for her. Lab work is largely unremarkable. D-dimer is minimally elevated at 0.51. Retake count is normal. Immature recheck fraction is normal. Potassium is mildly low at 3.2. Renal function is normal. CTA of the chest was ordered to rule out PE although my clinical suspicion is very low. Patient was refusing to go to CT until she can have something more for pain. I advised her I would not give her any more narcotics. She did receive a dose of Tylenol for headache along with a dose of Zofran and Benadryl for nausea. Patient continued to refuse to go to CT until she got more medication. We advised her that if she did not go to CT by a certain time (approximately 5 hours in the ED) we would discharge her as my suspicion for PE was very low. At that time patient states that she will just go home. There is no evidence of sickle cell crisis. There is no sign of dehydration and patient had no vomiting in the emergency room. Discharge Plan Triage Chief Complaint: Chest Pain ED Provider: Ngoc Gallardo Dx/Rx/DC Orders Clinical Impression: Chest pain Instructions: ED Chest Pain, Noncardiac Prescriptions: No Action diphenhydramine HCl 25 MG capsule 50 mg PO Q4H RF: 0 prednisone 20 MG tablet 20 mg PO DAILY RF: 0 aspirin 81 MG tablet,chewable 81 mg PO DAILY RF: 0 folic acid 1 MG tablet 1 mg PO DAILY RF: 0 insulin aspart U-100 100 UNITS/ML insulin pen 20 units subcut TIDCM RF: 0 pregabalin 200 MG capsule 200 mg PO BID RF: 0 Hydroxyurea 500 MG capsule 500 mg PO DAILY RF: 0 insulin glargine 100 UNIT/ML insulin pen 40 unit SQ BID RF: 0 ondansetron HCl 8 MG tablet 8 mg PO Q8H PRN (Reason: Nausea) Qty: 15 RF: 0 promethazine 25 MG tablet 25 mg PO Q6H PRN (Reason: nausea and vomiting) Qty: 12 RF: 0 azithromycin 250 MG tablet 250 mg PO DAILY Qty: 4 RF: 0 ondansetron 4 MG tablet 4 mg PO Q8H PRN PRN (Reason: Nausea) Qty: 10 RF: 0 promethazine 25 MG suppository 25 mg RECTAL Q6H PRN PRN (Reason: Nausea) Qty: 6 RF: 0 Primary Care Provider: Sherman Abreu Referrals: Sherman Abreu DO [Primary Care Provider] - As soon as possible Activity Restrictions/Additional Instructions: Your blood work indicated no evidence of sickle cell crisis. Chest x-ray was clear. Lab work is unremarkable. Disposition Disposition: Home, Self Care
[2021-07-07] MEDS: DiphenhydrAMINE 50 MG/ML Syringe 12.5 MG IV (23:36)
[2021-07-07] MEDS: 0.9% Normal Saline 1,000 ML 1000 ML IV (23:36)
[2021-07-07] MEDS: HYDROmorphone 0.5 MG/0.5 ML SYRINGE IV (23:36)
[2021-07-07] MEDS: proMETHazine 25 MG/ML Syringe 12.5 MG IM (23:36)
[2021-07-08 00:33] VITALS: BP 152/92; RESP 15; O2SAT 100
[2021-07-08] MEDS: Ondansetron 4 MG/2 ML Vial IV (01:26)
[2021-07-08] MEDS: DiphenhydrAMINE 50 MG/ML Syringe 12.5 MG IV (01:26)
[2021-07-08] MEDS: Acetaminophen 500 MG Tablet 1000 MG PO (01:27)
--- NOTE | 2021-07-08 01:34 | ED.RN ---
pt refusing ct scan. i don't want to go down there. It's just going to make my head hurt worse. Reason for CT scan and importance of explained. continues to refuse. Dr Gallardo notified.
--- NOTE | 2021-07-08 01:55 | ED.RN ---
encouraged to go to ct scan. states, i will just go home. dr phan notified.
[2021-07-08 02:17] VITALS: BP 155/92; PULSE 106; RESP 16; O2SAT 100
== END 2021-07-08 02:59 | disposition home or self-care (01) ==
PROVIDERS: Emergency Provider Emergency Medicine; PCP Family Medicine
DX: R07.9 Chest pain, unspecified (principal)
CPT/HCPCS: 36591; 71045; 80048; 80076; 83690; 84484; 84703; 85025; 85045; 85379; 93005; 96372; 96374; 96375; 96376; 99283; J7030; A4216; J2405